=== PATIENT | male | born 1935 | race Hispanic/Latino ===

== ENCOUNTER 2018-02-24 03:30 | Inpatient (IN) | payer MEDICARE, OTHER ==
[2018-02-24 03:46] VITALS: BMI 33.3
--- NOTE | 2018-02-24 03:55 | ED PDOC ---
Arrival/HPI - General Time Seen by Provider: 02/24/18 03:30 Historian: Patient, Other (Friend) - History of Present Illness Narrative History of Present Illness (Text): 02/24/18 03:53 An 82 year old male, whose past medical history includes HI, CHF, A-Fib, presents to the emergency department with a complaint of shortness of breath. Patient notes that he began to experience the difficulty breathing this morning. The patient's friend states that he was coughing today and asked her to call EMS to bring him into the emergency department for further evaluation. The patient also notes that both of his legs are more swollen than the y usually are. The patient denies fevers, chills, headache, dizziness, chest pain , dyspnea on exertion, abdominal pain, nausea, vomiting, diarrhea, back pain, neck pain, urinary/bowel changes, or any other complaint. PMD: Dr. Lowry Time/Duration: Other (Yesterday Morning) Symptom Onset: Sudden Symptom Course: Unchanged Activities at Onset: Rest, Light Context: Home Past Medical History - Provider Review Nursing Documentation Reviewed: Yes Family/Social History - Physician Review Nursing Documentation Reviewed: Yes Family/Social History: No Known Family HX Allergies/Home Meds Allergies/Adverse Reactions: Allergies No Known Allergies Allergy (Verified 02/24/18 03:45) Home Medications: Home Meds Medication Instructions Recorded Confirmed Apixaban [Eliquis] 2.5 mg PO BID 02/24/18 02/24/18 Clopidogrel [Plavix] 75 mg PO DAILY 02/24/18 02/24/18 Finasteride [Proscar] 5 mg PO DAILY 02/24/18 02/24/18 Furosemide [Lasix] 20 mg PO DAILY 02/24/18 02/24/18 Rosuvastatin Calcium [Crestor] 5 mg PO DAILY 02/24/18 02/24/18 Tamsulosin [Flomax] 0.4 mg PO DAILY 02/24/18 02/24/18 Verapamil [Verapamil HCl] 180 mg PO DAILY 02/24/18 02/24/18 Review of Systems - Physician Review All systems were reviewed & negative as marked: Yes - Review of Systems Constitutional: absent: Fevers Respiratory: SOB, Cough Cardiovascular: absent: Chest Pain, FISHER Gastrointestinal: absent: Abdominal Pain, Stool Changes, Diarrhea, Nausea, Vomiting Genitourinary Male: absent: Urinary Output Changes Musculoskeletal: Other (Bilateral leg swelling.). absent: Back Pain, Neck Pain Neurological: absent: Headache, Dizziness Physical Exam - Physical Exam Narrative Physical Exam (Text): 02/24/18 03:56 Gen: VS reviewed, alert, well developed, well nourished, nontoxic, mild distress. ENT: Normal pharynx. Eye: EOMI, PERRL. Neck: No JVD, supple, no adenopathy. CV: Rapid rhythm. Rate irregularly irregular. Mid-sternal surgical scar which is well healed. Pulm: No distress. Faint bilateral expiratory wheeze. Abd: Soft, non-tender, no guarding, no rebound, no rigidity, normal bowel sounds. Ext: Pitting edema bilateral lower extremity. Skin: Good color, no rash, no cyanosis. Psych: Responds appropriately to questions, normal affect. Neuro: Oriented x 3, CN2-12 intact grossly, motor intact, sensation intact. Vital Signs Reviewed: Yes Vital Signs Temp Pulse Resp BP Pulse Ox 02/24/18 06:47 108 H 24 130/68 97 02/24/18 06:07 111 H 26 H 150/78 96 02/24/18 05:53 128/92 H 02/24/18 05:23 103 H 24 119/79 98 02/24/18 04:34 102 H 24 125/85 98 02/24/18 04:12 123 H 142/90 02/24/18 03:33 98.1 F 129 H 20 150/81 92 L Temperature: Afebrile Blood Pressure: Normal Pulse: Tachycardic Respiratory Rate: Normal Appearance: Positive for: Well-Appearing, Non-Toxic, Comfortable Pain Distress: None Mental Status: Positive for: Alert and Oriented X 3 Medical Decision Making ED Course and Treatment: 02/24/18 03:58 Impression: An 82 year old male who presents to the emergency department with complaint of worsening shortness of breath. Plan: -- EKG -- Chest X-ray -- Labs -- Cardizem -- Reassess and disposition Progress Notes: 02/24/18 05:46: Case discussed in detail with medical record librarians teacher. 02/24/18 06:[address] nj, intellectual property counsel, will come to the ED for bedside eval/consult for admission and disposition planning. patient seen for dyspnea and rapid atrial fibrillation. patient clinically in acute decomp chf without acute resp distress. patient also in rapid afib and will require IV cardizem for rate control. - Lab Interpretations Lab Results: 02/24/18 04:00 02/24/18 04:20 Lab Results 02/24/18 04:20: TSH 3rd Generation 1.53 02/24/18 04:20: Sodium 140, Potassium 4.7, Chloride 103, Carbon Dioxide 25, Anion Gap 17, BUN 35 H, Creatinine 1.3, Est GFR ( Amer) > 60, Est GFR ( Non-Af Amer) 53, Random Glucose 116 H, Calcium 9.1, Magnesium 2.2, Total Bilirubin 1.2, AST 44, ALT 96 H, Alkaline Phosphatase 95, Troponin I 0.35 H*, Total Protein 6.8, Albumin 3.9, Globulin 2.9, Albumin/Globulin Ratio 1.4 02/24/18 04:20: PT 18.3 H, INR 1.59, APTT 31.7 02/24/18 04:00: WBC 13.1 H, RBC 4.46, Hgb 13.4 L, Hct 39.4 L, MCV 88.3, MCH 30.0 , MCHC 34.0, RDW 14.3, Plt Count 247, MPV 12.2 H, Gran % 81.9 H, Lymph % (Auto) 8.3 L, [place] % (Auto) 8.7 H, Eos % (Auto) 0.8 L, Baso % (Auto) 0.3, Gran # 10.71 H, Lymph # (Auto) 1.1 L, [place] # (Auto) 1.1 H, Eos # (Auto) 0.1, Baso # (Auto) 0.04 I have reviewed the lab results: Yes - RAD Interpretation Narrative RAD Interpretations (Text): 02/24/18 04:48: Chest X-ray read and interpreted by me shows pulmonary vascular congestion. Cardiomegaly. Mild right pleural effusion. Radiology Orders: 02/24/18 03:50 CHEST PORTABLE [RAD] Stat - EKG Interpretation EKG Interpretation (Text): 02/24/18 07:02 0331: rapid afib at 137 bpm, nonspecific intraventricular conductoin delay, anterior infarct Interpreted by ED Physician: Yes Type: 12 lead EKG - Medication Orders Current Medication Orders: diltiaZEM IVPB 100mg in NS (Cardizem 100mg In Ns) 100 mls @ 10 mls/hr IV .Q10H PRN; Protocol; 10 MG/HR PRN Reason: TITRATE PER MD ORDER Last Admin: 02/24/18 04:12 Dose: 10 mls/hr eMAR Start Stop Document 02/24/18 04:12 SS (Rec: 02/24/18 04:12 SS [id number]) Intravenous Solution Start Date 02/24/18 Start Time 04:12 Discontinued Medications Diltiazem HCl (Cardizem) 20 mg IVP STAT STA Stop: 02/24/18 04:04 Last Admin: 02/24/18 04:12 Dose: 20 mg IVP Administration Document 02/24/18 04:12 SS (Rec: 02/24/18 04:12 SS [id number]) Charges for Administration # of IVP Administrations 1 MAR Pulse and Blood Pressure Document 02/24/18 04:12 SS (Rec: 02/24/18 04:12 SS [id number]) Pulse Pulse Rate (60-90) 123 Blood Pressure Blood Pressure (100/60-150/90) 142/90 Furosemide (Lasix) 40 mg IVP STAT STA Stop: 02/24/18 05:43 Last Admin: 02/24/18 05:53 Dose: 40 mg MAR Blood Pressure Document 02/24/18 05:53 SS (Rec: 02/24/18 05:57 SS [id number]) Blood Pressure Blood Pressure (100/60-150/90) 128/92 IVP Administration Document 02/24/18 05:53 SS (Rec: 02/24/18 05:57 SS [id number]) Charges for Administration # of IVP Administrations 1 - Scribe Statement The provider has reviewed the documentation as recorded by the Scribe Buffy Chávez Provider Scribe Attestation: All medical record entries made by the Scribe were at my direction and personally dictated by me. I have reviewed the chart and agree that the record accurately reflects my personal performance of the history, physical exam, medical decision making, and the department course for this patient. I have also personally directed, reviewed, and agree with the discharge instructions and disposition. Disposition/Present on Arrival - Present on Arrival Any Indicators Present on Arrival: No - Disposition Have Diagnosis and Disposition been Completed?: Yes Diagnosis: CHF (congestive heart failure), Rapid atrial fibrillation Disposition: HOSPITALIZED Disposition Time: 06:45 Patient Plan: Admission Patient Problems: Current Active Problems Problem Status Onset CHF (congestive heart failure) Acute Rapid atrial fibrillation Acute Condition: FAIR Discharge Instructions (ExitCare): Heart Failure (ED)
[2018-02-24 04:10] LABS: BASO # 0.04 K/mm3 (0.0-2.0); BASO % 0.3 % (0.0-3.0); EOS # 0.1 (0.0-0.7); EOS % 0.8 % (1.5-5.0); GRAN # 10.71 (1.4-6.5); GRAN % 81.9 % (50.0-68.0); HEMOGLOBIN 13.4 g/dL (14.0-18.0); LYMPH # 1.1 (1.2-3.4); LYMPH % 8.3 % (22.0-35.0); MEAN CELL VOLUME 88.3 fl (80.0-105.0); MEAN PLATELET VOLUME 12.2 fl (7.0-11.0); MONO # 1.1 (0.1-0.6); MONO % 8.7 % (1.0-6.0); RBC 4.46 10^6/uL (3.5-6.1); RED CELL DISTRIBUTION WIDTH 14.3 % (11.5-14.5); WHITE BLOOD COUNT 13.1 10^3/ul (4.5-11.0)
[2018-02-24] MEDS: diltiaZEM IVPB 100mg in NS 100 ML IV PRN ×2 (04:12→20:00)
[2018-02-24 04:42] LABS: INR 1.59; PROTHROMBIN TIME 18.3 SECONDS (9.4-12.5)
[2018-02-24 04:45] LABS: PARTIAL THROMBOPLASTIN TIME 31.7 Seconds (25.1-36.5)
[2018-02-24 04:56] LABS: ALB/GLOB RATIO 1.4 (1.1-1.8); ALBUMIN 3.9 g/dL (3.0-4.8); ALT/SGPT 96 U/L (7-56); AST/SGOT 44 U/L (17-59); BLOOD UREA NITROGEN 35 mg/dL (7-21); CALCIUM 9.1 mg/dL (8.4-10.5); GFR AFRICAN-AMERICAN > 60; GFR NON-AFRICAN AMERICAN 53
[2018-02-24 05:25] LABS: TROPONIN I 0.35 ng/mL
--- NOTE | 2018-02-24 07:41 | CP.PCM.HP ---
<Saji Norris - Last Filed: 02/24/18 08:24> History of Present Illness - History of Present Illness History of Present Illness: HISTORY & PHYSICAL NOTE FOR HOSPITALIST TEAM Saji Norris PGY1 CC: Cough, SOB, and intermittent chest pain HPI: 82 y/o M with pmhx of CAD, s/p CABG x 4 4years ago, Afib, HTN, HLD, aortic stenosis s/p aortic bioprosthetic valve replacement arrived to ED with worsening complaints of SOB, cough and chest pain that he's been experiencing for the past week. Pt reports he has been unable to sleep due to his cough. Pt was recently admitted at [facility] on 02/16/18 for complaints of chest pain /palpitations and found to have NSTEMI. He underwent cardiac cath with Dr. Amor which showed severe occlusion in LAD, D1 artery, obtuse marginal 1&[address] Amor recommended intervention grafting as outpatient procedure. He was also found to have new onset Afib during that admission. This am, pt presented with complaints of cough, shortness of breath and intermittent chest pain for the past day. Pt expressed concern that he wanted to be seen by Dr. Amor to possibly undergo cardiac grafting. He denies headache, fevers, chills, nausea, vomiting. Discussion was had regarding advanced directives, patient was noted to be DNR/DNI. PMx: CAD, s/p CABG x 4 4years ago, Afib, HTN, HLD, PSurghx: aortic bioprosthetic valve replacement Allergies: NKDA Socialhx: former smoker, no alcohol PMD: [employer] Manager: Dr. Amor Cath results (02/16/18): 99% LAD proximal, mid LAD 100% stenosis, D1 100%, Obtuse marignal 1 100% stenosis, Obtuse marginal 2 99% stenosis, RCA 100% proximally stenosed, saphenous vein graft to diagonal artery has 70-80% distal stenosis Echo (02/16/18): 46% EF. LV moderately dilated, mild-moderate LV hypertrophy. Moderate hypokinesis in inferior wall. Severe diastolic dysfunction. RV moderately dilated. Aortic valve calcified, decreased opening. No pericardial effusion Attempted to contact Dr. Amor multiple times regarding plans for intervention with no response. Dr. Amor: [phone] Present on Admission - Present on Admission Any Indicators Present on Admission: No Review of Systems - Review of Systems All systems: reviewed and no additional remarkable complaints except (as per HPI ) Past Patient History - Past Social History Smoking Status: Former Smoker Drugs: Denies - CARDIAC Hx Cardiac Disorders: Yes Hx Heart Attack: Yes Hx Hypertension: Yes Other/Comment: CABG 01/01/11 - PULMONARY Hx Respiratory Disorders: No - NEUROLOGICAL Hx Neurological Disorder: No - HEENT Hx HEENT Problems: No - RENAL Hx Chronic Kidney Disease: No - ENDOCRINE/METABOLIC Hx Endocrine Disorders: No - HEMATOLOGICAL/ONCOLOGICAL Hx Blood Disorders: No - MUSCULOSKELETAL/RHEUMATOLOGICAL Hx Musculoskeletal Disorders: No - GASTROINTESTINAL Hx Gastrointestinal Disorders: No - GENITOURINARY/GYNECOLOGICAL Hx Genitourinary Disorders: No - PSYCHIATRIC Hx Psychophysiologic Disorder: No Hx Substance Use: No - SURGICAL HISTORY Hx Surgeries: Yes Hx Coronary Artery Bypass Graft: Yes (01/01/11) Meds Allergies/Adverse Reactions: Allergies Allergy/AdvReac Type Severity Reaction Status Date / Time No Known Allergies Allergy Verified 02/24/18 03:45 Physical Exam - Constitutional Appears: Well, No Acute Distress - Head Exam Head Exam: ATRAUMATIC, NORMAL INSPECTION - Eye Exam Eye Exam: Normal appearance - ENT Exam ENT Exam: Mucous Membranes Moist, Normal Exam - Neck Exam Neck exam: Positive for: Normal Inspection - Respiratory Exam Respiratory Exam: Decreased Breath Sounds, Rales, Wheezes, NORMAL BREATHING PATTERN. absent: Respiratory Distress - Cardiovascular Exam Cardiovascular Exam: Tachycardia, Irregular Rhythm - GI/Abdominal Exam GI & Abdominal Exam: Distended, Soft - Extremities Exam Extremities exam: Positive for: pedal edema (2+) - Back Exam Back exam: NORMAL INSPECTION - Neurological Exam Neurological exam: Alert, Oriented x3 - Psychiatric Exam Psychiatric exam: Normal Affect, Normal Mood - Skin Skin Exam: Rash Additional comments: Maculopapular rash over chest region CABG scar noted on chest Results - Vital Signs Recent Vital Signs: Last Vital Signs Temp 98.7 F 02/24/18 07:22 Pulse 97 H 02/24/18 07:22 Resp 20 02/24/18 07:22 BP 120/76 02/24/18 07:22 Pulse Ox 96 02/24/18 07:22 - Labs Result Diagrams: 02/24/18 04:00 02/24/18 04:20 Assessment & Plan - Assessment and Plan (Free Text) Assessment: 82 y/o M with pmhx of CAD, s/p CABG x 4 4years ago, Afib, HTN, HLD, aortic stenosis s/p aortic bioprosthetic valve replacement arrived to ED with worsening complaints of SOB, cough and chest pain that he's been experiencing for the past week. ICU team was consulted for Afib w/RVR. Pt has been improving and has been transferred to tele. Cardiology consulted for further recs regarding cad intervention. Plan: CAD - will transfer to telemetry for monitoring - continue cardizem drip - repeat troponin in 8hrs to r/o acute AR CHF likely secondary to Afib w/ RVR - lasix given in ED, continue 40mg bid IVP - continue eloquis & plavix - attempt to contact Dr. Amor regarding recs - f/u BNP - Strict I&O's & daily weights - BiPAP prn - HHD diet - furthers per Dr. Rosario Case reviewed and discussed with attending, Dr. Rosario <Bryan Rosario P - Last Filed: 02/24/18 19:44> Results - Vital Signs Recent Vital Signs: Last Vital Signs Temp 98 F 02/24/18 17:55 Pulse 96 H 02/24/18 18:20 Resp 18 02/24/18 17:55 BP 137/81 02/24/18 18:20 Pulse Ox 97 02/24/18 14:08 - Labs Result Diagrams: 02/24/18 04:00 02/24/18 04:20 Labs: Laboratory Results - last 24 hr 02/24/18 10:40 Lactate Dehydrogenase 818 H Total Creatine Kinase 92 Troponin I 0.35 H* Attending/Attestation - Attestation I have personally seen and examined this patient.: Yes I have fully participated in the care of the patient.: Yes I have reviewed all pertinent clinical information: Yes Notes (Text): 02/24/18 19:44 See my progress note on the same day.
[2018-02-24] MEDS ORDERED: Digoxin 500 mcg/2ml (0.5 mg/2ml) Inj IVP ONE (07:56)
--- NOTE | 2018-02-24 08:16 | CP.PCM.PN ---
Subjective - Date & Time of Evaluation Date of Evaluation: 02/24/18 Time of Evaluation: 07:45 - Subjective Subjective: MICU RE-EVALUATION Patient is 82yo male with pmhx of CAD, s/p CABG x 4 2010, HTN, HLD, Aortic stenosis s/p aortic bioprosthetic valve replacement arrived to ED with worsening complaints of SOB, cough and chest pain that he's been experiencing for the past week. Patient presented with rapid Afib with RVR started on cardizem drip, currently 20mg/hr, given Lasix IV (550cc UOP thus far), on 2LNC. Patient is currently afebrile, BP stable, HR 100s AAOx3, NAD Reports SOB is significantly improved since admission Recommend: - supp o2 as needed - panculture - lower Cardizem drip to 10mg/hr - Digoxin 0.25mcg x 1 IVP - Lasix 40mg IV BID - ECHO - cardiology eval - monitor on telemetry - Patient is DNR/DNI Objective - Vital Signs/Intake and Output Vital Signs (last 24 hours): Temp Pulse Resp BP Pulse Ox 98.7 F 97 H 20 120/76 96 02/24/18 07:22 02/24/18 07:22 02/24/18 07:22 02/24/18 07:22 02/24/18 07:22 - Medications Medications: Current Medications Finasteride (Proscar) 5 mg PO DAILY JUAN A Furosemide (Lasix) 40 mg IVP Q12 JUAN A diltiaZEM IVPB 100mg in NS (Cardizem 100mg In Ns) 100 mls @ 10 mls/hr IV .Q10H PRN; Protocol; 10 MG/HR PRN Reason: TITRATE PER MD ORDER Last Admin: 02/24/18 04:12 Dose: 10 mls/hr Tamsulosin HCl (Flomax) 0.4 mg PO DAILY JUAN A - Labs Labs: PT 18.3 SECONDS (9.4-12.5) H 02/24/18 04:20 INR 1.59 02/24/18 04:20 APTT 31.7 Seconds (25.1-36.5) 02/24/18 04:20
--- NOTE | 2018-02-24 08:35 | CP.PCM.PN ---
Subjective - Date & Time of Evaluation Date of Evaluation: 02/24/18 Time of Evaluation: 08:30 - Subjective Subjective: Afib rvr CHF with interstitial edema, volume overload Ischemic cardiomyopathy CAD s/p cabg, with 70-80% obstructed vein graft to second diagonal, and 99% blocked marginal 2 needing intervention, last cath 02/16/18 H/o avr bioprosthetic valve Non symptomatic rash noticed in ER in erythematous flat patches, non blanching likely allergic, not type 1 DNR/DNI as per living will d/w commercial real estate attorney. Plan Diuresis trial of betablocer and reducing cardizem drip, patient admitted to tele with fixed rate drip of cardizem. Dr. Amor consulted Trial of ACEI as tolerated continue eliquis for now PRN bipap See orders for detail. Objective - Vital Signs/Intake and Output Vital Signs (last 24 hours): Temp Pulse Resp BP Pulse Ox 98.7 F 97 H 20 120/76 96 02/24/18 07:22 02/24/18 07:22 02/24/18 07:22 02/24/18 07:22 02/24/18 07:22 - Medications Medications: Current Medications Apixaban (Eliquis) 2.5 mg PO BID JUAN A PRN Reason: Protocol Atorvastatin Calcium (Lipitor) 20 mg PO DAILY JUAN A Clopidogrel Bisulfate (Plavix) 75 mg PO DAILY JUAN A Finasteride (Proscar) 5 mg PO DAILY JUAN A Furosemide (Lasix) 40 mg IVP Q12 JUAN A diltiaZEM IVPB 100mg in NS (Cardizem 100mg In Ns) 100 mls @ 10 mls/hr IV .Q10H PRN; Protocol; 10 MG/HR PRN Reason: TITRATE PER MD ORDER Last Admin: 02/24/18 04:12 Dose: 10 mls/hr Tamsulosin HCl (Flomax) 0.4 mg PO DAILY JUAN A - Labs Labs: PT 18.3 SECONDS (9.4-12.5) H 02/24/18 04:20 INR 1.59 02/24/18 04:20 APTT 31.7 Seconds (25.1-36.5) 02/24/18 04:20
[2018-02-24 08:43] VITALS: PULSE 1
--- NOTE | 2018-02-24 09:01 | RAD ---
Date of service: 02/24/2018 HISTORY: CHF COMPARISON: No prior. FINDINGS: LUNGS: No active pulmonary disease. PLEURA: No significant pleural effusion identified, no pneumothorax apparent. CARDIOVASCULAR: Moderate cardiomegaly and moderate vascular congestion OSSEOUS STRUCTURES: Sternal wires VISUALIZED UPPER ABDOMEN: Normal. OTHER FINDINGS: None. IMPRESSION: Moderate cardiomegaly and moderate vascular congestion
--- NOTE | 2018-02-24 09:34 | CARD ---
APPROVED REPORT Date of service: 02/24/2018 EKG Measurement Heart [id number] <Conclusion> Atrial fibrillation with rapid ventricular response Left axis deviation Nonspecific intraventricular block Possible Anterolateral infarct, age undetermined Abnormal ECG
[2018-02-24] MEDS ORDERED: Verapamil 180 mg ER Tab PO SCH (10:00)
[2018-02-24 11:38] LABS: TROPONIN I 0.35 ng/mL
[2018-02-24] MEDS ORDERED: Levalbuterol 1.25 MG/3 ML Inhal Soln UD IH PRN (14:23)
[2018-02-24] MEDS ORDERED: Albuterol-Ipratrop 3 mg / 0.5 (3 ml) UD IH SCH (14:30)
[2018-02-24] MEDS: Levalbuterol 1.25 MG/3 ML Inhal Soln UD IH SCH ×2 (16:06→20:35)
[2018-02-24] MEDS ORDERED: Pneumococcal 23-Valent Vaccine IM ONE (20:06)
[2018-02-25] MEDS: Levalbuterol 1.25 MG/3 ML Inhal Soln UD IH SCH ×4 (02:35→19:50)
[2018-02-25] MEDS: diltiaZEM IVPB 100mg in NS 100 ML IV PRN ×2 (06:14→18:14)
[2018-02-25 07:21] LABS: BASO # 0.07 K/mm3 (0.0-2.0); BASO % 0.6 % (0.0-3.0); EOS % 8.6 % (1.5-5.0); GRAN # 7.73 (1.4-6.5); LYMPH % 9.1 % (22.0-35.0); MEAN CELL VOLUME 89.8 fl (80.0-105.0); MEAN CORPUSCULAR HEMOGLOBIN 29.5 pg (25.0-35.0); MEAN CORPUSCULAR HGB CONC 32.8 g/dl (31.0-37.0); MEAN PLATELET VOLUME 11.7 fl (7.0-11.0); MONO # 1.3 (0.1-0.6); MONO % 11.7 % (1.0-6.0); RBC 4.41 10^6/uL (3.5-6.1); RED CELL DISTRIBUTION WIDTH 14.1 % (11.5-14.5); WHITE BLOOD COUNT 11.1 10^3/ul (4.5-11.0)
[2018-02-25 07:37] LABS: ALB/GLOB RATIO 1.1 (1.1-1.8); ALBUMIN 3.3 g/dL (3.0-4.8); ALT/SGPT 95 U/L (7-56); AST/SGOT 40 U/L (17-59); BLOOD UREA NITROGEN 31 mg/dL (7-21); CALCIUM 8.3 mg/dL (8.4-10.5); GFR AFRICAN-AMERICAN > 60; GFR NON-AFRICAN AMERICAN 58
--- NOTE | 2018-02-25 09:14 | CP.PCM.PN ---
<Janae Camarena - Last Filed: 02/25/18 20:56> Subjective - Date & Time of Evaluation Date of Evaluation: 02/25/18 Time of Evaluation: 09:13 - Subjective Subjective: Janae Camarena, PGY-1, Internal Medicine Progress Note for Dr. Sandy Forrest Patient seen and observed at bedside this AM. Significant overnight events include patient's cardizem drip reduced from 20 mg/hr to 10 mg/hr. Patient reports intermittent wheezing, cough, and white sputum today. Patient denies chest pain, shortness of breath, heart palpitations today. Patient also denies headache, dizziness, left arm pain, jaw pain, nausea, vomiting, constipation, diarrhea, dysuria, and hematuria. Objective - Vital Signs/Intake and Output Vital Signs (last 24 hours): Temp Pulse Resp BP Pulse Ox 98.4 F 94 H 20 110/68 100 02/25/18 06:00 02/25/18 06:00 02/25/18 06:00 02/25/18 06:00 02/25/18 06:00 Intake and Output: 02/25/18 02/25/18 06:59 18:59 Intake Total 580 Output Total 1300 Balance -720 - Medications Medications: Current Medications Apixaban (Eliquis) 2.5 mg PO BID [facility] PRN Reason: Protocol Last Admin: 02/24/18 18:20 Dose: 2.5 mg Aspirin (Aspirin Chewable) 81 mg PO DAILY [facility] Atorvastatin Calcium (Lipitor) 20 mg PO DAILY [facility] Last Admin: 02/24/18 14:02 Dose: 20 mg Carvedilol (Coreg) 3.125 mg PO BID [facility] Last Admin: 02/24/18 18:20 Dose: 3.125 mg Clopidogrel Bisulfate (Plavix) 75 mg PO DAILY [facility] Last Admin: 02/24/18 14:00 Dose: 75 mg Finasteride (Proscar) 5 mg PO DAILY [facility] Last Admin: 02/24/18 14:03 Dose: 5 mg Furosemide (Lasix) 40 mg IVP Q12 [facility] Last Admin: 02/24/18 21:35 Dose: 40 mg diltiaZEM IVPB 100mg in NS (Cardizem 100mg In Ns) 100 mls @ 10 mls/hr IV .Q10H PRN; Protocol; 10 MG/HR PRN Reason: TITRATE PER MD ORDER Last Admin: 02/25/18 06:14 Dose: 10 mg/hr, 10 mls/hr Levalbuterol HCl (Xopenex) 1.25 mg IH Q6H [facility] Last Admin: 02/25/18 08:51 Dose: 1.25 mg Levalbuterol HCl (Xopenex) 1.25 mg IH Q4H PRN PRN Reason: Shortness of Breath Tamsulosin HCl (Flomax) 0.4 mg PO DAILY [facility] Last Admin: 02/24/18 14:02 Dose: 0.4 mg - Labs Labs: 02/25/18 06:30 02/25/18 06:30 PT 18.3 SECONDS (9.4-12.5) H 02/24/18 04:20 INR 1.59 02/24/18 04:20 APTT 31.7 Seconds (25.1-36.5) 02/24/18 04:20 - Constitutional Appears: Well, Non-toxic - Head Exam Head Exam: ATRAUMATIC, NORMOCEPHALIC - Eye Exam Eye Exam: EOMI, PERRL - ENT Exam ENT Exam: Mucous Membranes Moist - Respiratory Exam Respiratory Exam: Wheezes Additional comments: diffuse wheezes anteriorly and posteriorly - Cardiovascular Exam Cardiovascular Exam: Irregular Rhythm Additional comments: irregular rate and rhythm - GI/Abdominal Exam GI & Abdominal Exam: Distended (do not know baseline of abdomen. patient's abdomen looked firm and distended), Firm. absent: Tenderness - Extremities Exam Extremities Exam: Full ROM, Pedal Edema (+2 pitting edema bilaterally). absent : Calf Tenderness - Back Exam Back Exam: NORMAL INSPECTION - Neurological Exam Neurological Exam: Alert, Awake, CN II-XII Intact, Oriented x3 Neuro motor strength exam: Left Upper Extremity: 5, Right Upper Extremity: 5, Left Lower Extremity: 5, Right Lower Extremity: 5 - Psychiatric Exam Psychiatric exam: Normal Affect, Normal Mood - Skin Skin Exam: Erythema (left lower extremity) Assessment and Plan - Assessment and Plan (Free Text) Assessment: 82 year old male with past medical history of CAD, atrial fibrillation, hypertension, HLD, aortic stenosis status post aortic bioprosthetic valve presents with shortness of breath, heart palpitations, and cough. Plan: 1. Atrial fibrillation with Rapid Ventricular Response -EKG (02/24) showed atrial fibrillation with RVR with HR of 137, QRSd: 132, and QTc: 480 -Chest X ray (02/24): moderate cardiomegaly, vascular congestion -At 12:34 today, heart rate was 105. Patient's heart rate has been between 90- 100 since 14:00 on 02/24. -Patient has history of atrial fibrillation -Patient was on diltiazem 20 mg drip overnight which was reduced to 10 mg drip. Diltiazem drip will continue to be tapered. -Per Dr. Amor recommendation, coreg was made 6.25 mg BID PO. -Dr. Michael has been consulted for cardiology at [facility]. Dr. Amor has also been contacted regarding the case for recommendations. Dr. Amor saw patient today in hospital. Continue to follow recommendations of cardiology. 2. Congestive Heart Failure, Aortic stenosis, Hx of CAD -Echocardiogram on 02/16/18 showed 46% ejection fraction, left ventricle was moderately dilated, left ventricular hypertrophy, moderate hypokinesis in inferior wall, severe diastolic dysfunction, dilated right ventricle and restenosed aortic valve. -Cardiac catheterization done by Dr. Amor in [facility]: severe occlusion of LAD (99%), DI (100%) occlusion, obtuse marginal artery 1 (100%) occlusion, obtuse marginal artery 2 (99%) occlusion, and RCA (100%) occlusion -Troponin: 14.[address] [facility] but was 0.35 twice on 02/24 likely secondary to atrial fibrillation and NSTEMI on 02/16 which is less than 2 weeks ago. -BNP: 3880 -LDH: 818 -Diltiazem drip of 10 mg IV -One additional dose of coreg 3.325 mg PO given -Tonight, coreg 6.25 mg PO will be started and continued BID -Lasix 40 mg IVP Q12 -Eliquis 2.5 mg BID -Plavix 75 mg daily -Aspirin was stopped since patient on eliquis. -Systolic blood pressure was in the 100s to 110s so continue to monitor. 3. Hx of BPH -finasteride 5 mg and tamsulosin 0.4 mg as per home regimen. 4. Anemia -13 from 13.4 yesterday. <Sandy Forrest R - Last Filed: 02/27/18 11:34> Objective - Vital Signs/Intake and Output Vital Signs (last 24 hours): Temp Pulse Resp BP Pulse Ox 97.7 F 113 H 18 109/65 99 02/27/18 06:00 02/27/18 09:17 02/27/18 06:00 02/27/18 09:17 02/27/18 06:00 Intake and Output: 02/27/18 02/27/18 06:59 18:59 Intake Total 240 60 Output Total 1100 Balance -860 60 - Medications Medications: Current Medications Apixaban (Eliquis) 2.5 mg PO BID [facility] PRN Reason: Protocol Last Admin: 02/27/18 09:17 Dose: 2.5 mg Atorvastatin Calcium (Lipitor) 20 mg PO DAILY [facility] Last Admin: 02/27/18 09:17 Dose: 20 mg Carvedilol (Coreg) 6.25 mg PO BID [facility] Last Admin: 02/27/18 09:17 Dose: 6.25 mg Clopidogrel Bisulfate (Plavix) 75 mg PO DAILY [facility] Last Admin: 02/27/18 09:17 Dose: 75 mg Diltiazem HCl (Cardizem) 60 mg PO Q8 [facility] Finasteride (Proscar) 5 mg PO DAILY [facility] Last Admin: 02/27/18 09:17 Dose: 5 mg Furosemide (Lasix) 40 mg IVP Q12 [facility] Last Admin: 02/27/18 09:17 Dose: 40 mg diltiaZEM IVPB 100mg in NS (Cardizem 100mg In Ns) 100 mls @ 5 mls/hr IV .Q20H PRN; Protocol; 5 MG/HR PRN Reason: TITRATE PER MD ORDER Last Admin: 02/26/18 17:37 Dose: 5 mg/hr, 5 mls/hr Levalbuterol HCl (Xopenex) 1.25 mg IH Q6H [facility] Last Admin: 02/27/18 07:59 Dose: 1.25 mg Levalbuterol HCl (Xopenex) 1.25 mg IH Q4H PRN PRN Reason: Shortness of Breath Last Admin: 02/26/18 08:44 Dose: 1.25 mg Potassium Chloride (K-Dur 20 Meq Er Tab) 20 meq PO BRK [facility] Last Admin: 02/27/18 09:16 Dose: 20 meq Tamsulosin HCl (Flomax) 0.4 mg PO DAILY [facility] Last Admin: 02/27/18 09:17 Dose: 0.4 mg - Labs Labs: 02/27/18 06:30 02/27/18 06:30 PT 18.3 SECONDS (9.4-12.5) H 02/24/18 04:20 INR 1.59 02/24/18 04:20 APTT 31.7 Seconds (25.1-36.5) 02/24/18 04:20 Attending/Attestation - Attestation I have personally seen and examined this patient.: Yes I have fully participated in the care of the patient.: Yes I have reviewed all pertinent clinical information, including history, physical exam and plan: Yes Notes (Text): Patient seen and examined by me at 11:25AM with resident 02/25/18. Case including HPI, physical exam, and assessment and plan discussed with resident. Agree with above with following additions/corrections. Patient is an 82-year-old male with past medical history significant for coronary artery disease status post CABG, systolic CHF, atrial fibrillation, hypertension, hyperlipidemia, and aortic stenosis status post AVR that presented to the emergency room with cough, shortness of breath, intermittent chest pain. Patient states he is feeling much better. States that shortness of breath and cough have improved. Chest pain has resolved. He states he does still feel like he is wheezing. He denies any headaches or dizziness. No fevers or chills. No nausea, vomiting, or abdominal pain. No dysuria. Patient is on cardizem drip. Physical exam: Gen: Awake and alert sitting up in bed in no acute distress HEENT: Normocephalic, atraumatic. Extraocular muscles intact, pupils equal reactive. Oropharynx is pink and moist, no pharyngeal erythema or exudate appreciated. Neck is supple. Cardiovascular: Irregularly irregular S1, S2. Positive murmur. No rubs, or gallops appreciated. Positive bilateral lower extremity pitting edema. Pulmonary: Normal respiratory effort. Decreased breath sounds. Scatter coarse breath sounds. Positive wheezing throughout. No rales appreciated. Gastrointestinal: Soft, nontender, nondistended, positive globular abdomen, positive bowel sounds all 4 quadrants, no guarding. Musculoskeletal: Moves all extremities, no calf tenderness Central nervous system: AAO x 3. 5/5 muscle strength all extremities. CN 2-12 grossly intact Dermatologic: Skin warm and dry Assessment and plan: Patient is an 82-year-old male with past medical history significant for coronary artery disease status post CABG, systolic CHF, atrial fibrillation, hypertension, hyperlipidemia, and aortic stenosis status post AVR that presented to the emergency room with cough, shortness of breath, intermittent chest pain. 1. Acute on chronic systolic CHF exacerbation. Cardiology consulted, recommendations appreciated. Patient follows with pulvi mixer operator Dr. Amor, case also discussed with Dr. Amor. 2D echo results pending. Continue Lasix 40mg IV BID. Continue Coreg. Monitor weights. Strict I's and O's. 2. Atrial fibrillation with rapid ventricular response. Cardiology following, recommendations appreciated. Continue with Cardizem drip, taper off drip and changed to by mouth when tolerated. Continue Eliquis. Continue Coreg. Coreg dose increased to 6.25 by mouth twice a day. Continue to monitor on telemetry. 3. Shortness of breath. Multifactorial. Likely secondary to CHF exacerbation, atrial fibrillation with RVR, and likely underlying COPD. Continue with nebulizer treatments. Continue with O2 via nasal cannula as needed. We'll get ABG. 4. Coronary artery disease, status post CABG. Elevated troponin. Status post cardiac catheterization at [facility] which showed severe occlusion of LAD (99%), DI (100%) occlusion, obtuse marginal artery 1 (100%) occlusion, obtuse marginal artery 2 (99%) occlusion, and RCA (100%) occlusion. Troponin is downtrending. Cardiology following, recommendations appreciated. Continue Eliquis and Plavix. Patient changed from metoprolol to Coreg. Continue Lipitor. Continue to monitor on telemetry. Patient is chest pain-free. 5. Essential hypertension. Continue with Coreg and Lasix. 6. Hyperlipidemia. Continue Lipitor 7. BPH. Continue home flomax and finasteride 8. DVT prophylaxis. Eliquis 9. Patient is a DNR/DNI Case was discussed in detail with the patient, Dr. Amor, and Dr. Michael regarding current diagnosis and treatment plan.
[2018-02-25] MEDS: Potassium Chloride 20 mEq ER Tab PO SCH (11:16)
--- NOTE | 2018-02-25 15:40 | CARD ---
APPROVED REPORT Date of service: 02/25/2018 EXAM: Two-dimensional and M-mode echocardiogram with Doppler and color Doppler. INDICATION Atrial Fibrillation 2D DIMENSIONS Left Atrium (2D)4.5 (1.6-4.0cm)IVSd1.0 (0.7-1.1cm) LVDd5.3 (3.9-5.9cm)PWd1.0 (0.7-1.1cm) LVDs4.4 (2.5-4.0cm)FS (%) 16.4 % LVEF (%)33.9 (>50%) M-Mode DIMENSIONS Aortic Root3.80 (2.2-3.7cm) Aortic Valve AoV Peak Qrtjcfsg491.0cm/sAoV VTI53.0cmAO Peak GR.27mmHg AO Mean GR.16mmHg Mitral Valve E/A ratio0.0 TDI E/Lateral E'0.0E/Medial E'0.0 Pulmonary Valve PV Peak Qkkqxjgl45.8cm/sPV Peak Grad.3mmHg Tricuspid Valve TR Peak [id number]/sRAP [id number] Peak Gr.32mmHg [id number] LEFT VENTRICLE The left ventricle is normal size. There is normal left ventricular wall thickness. Left ventricle systolic function is moderately impaired. There is global hypokinesis of the left ventricle. RIGHT VENTRICLE The right ventricle is mildly dilated. ATRIA The left atrium is mildly dilated. The right atrium is mildly dilated. The interatrial septum is intact with no evidence for an atrial septal defect. AORTIC VALVE The aortic valve is moderately calcified. No aortic regurgitation is present. There is mild to moderate valvular aortic stenosis. MITRAL VALVE Mitral annular calcification is mild. Mitral regurgitation is moderate. TRICUSPID VALVE The tricuspid valve is normal in structure. There is mild tricuspid regurgitation. PULMONIC VALVE The pulmonary valve is normal in structure. GREAT VESSELS The aortic root is normal in size. The IVC is normal in size and collapses >50% with inspiration. PERICARDIAL EFFUSION There is no pleural effusion. There is no pericardial effusion. <Conclusion> Biatrial enlargement. Dialted RV. Normal LV size. Moderate LV systolic dysfunction with global hypokinesis. Mild to moderate . Moderate MR. Mild TR.
--- NOTE | 2018-02-25 20:22 | CON ---
Copied To: Juarez Michael MD Attending MD: Juarez Michael MD DATE: 02/25/2018 CARDIOLOGY CONSULTATION REASON FOR CONSULTATION: Ischemic cardiomyopathy. HISTORY OF PRESENT ILLNESS: The patient is an 82-year-old male who has a history of coronary artery disease, status post coronary artery bypass surgery many years ago. Patient presented to [facility] with acute non-ST elevation myocardial infarction. Cardiac catheterization was performed by Dr. Amor on 02/21, i.e. 4 days ago, which revealed patent ROSALES to LAD, patent saphenous vein graft to the PDA, and patent saphenous vein graft to the marginal branch with 70% stenosis of distal saphenous vein graft to the diagonal branch. The proximal LAD had 99% stenosis with total occlusion in mid LAD. First obtuse marginal branch had 100% occlusion and the second obtuse marginal branch had 99% stenosis and the right coronary artery was totally occluded, and the plan is to have the patient undergo PCI as an outpatient by Dr. Amor. The patient presented to [facility] because of shortness of breath and was found to be in rapid atrial fibrillation and required anticoagulation. Patient denied any chest pain at this time. SOCIAL HISTORY: Patient never smoked. He lives with a girlfriend. He drives his own car, takes care of himself. MEDICATIONS: Aspirin 81 mg once a day, Cardizem infusion at 10 mg per hour, Coreg 3.125 mg twice a day, Eliquis 2.5 mg twice a day, Flomax 0.4 mg once daily, Lasix 40 mg intravenously twice a day, Lipitor 20 mg once a day, Plavix 75 mg once a day, Xopenex inhaler every 4 hours p.r.n., and Proscar 5 mg once a day. REVIEW OF SYSTEMS: No nausea or vomiting. No fevers or chills. PAST MEDICAL HISTORY: History of coronary artery disease, status post coronary artery bypass surgery and aortic valve replacement. PHYSICAL EXAMINATION: GENERAL: The patient is an elderly male who is mildly tachypneic, but does not appear to be in acute distress. VITAL SIGNS: Blood pressure 121/71, heart rate 92, temperature 98.4, and respirations 20. HEENT: Normocephalic. CHEST: Absent breath sounds over the bases. HEART: S1 and S2, regular. ABDOMEN: Soft. EXTREMITIES: 1+ pitting edema. LABORATORY DATA: Hemoglobin and hematocrit 13 and 39.6, white count 11.1, and platelet count 231,000. SMA-7 today sodium 140, potassium 3.9, chloride 101, CO2 of 30. Glucose 94. BUN 31, creatinine 1.2. Two sets of troponin at 0.35. INR is 1.59, PTT is 33. Chest x-ray revealed cardiomegaly with [id number] CHF. EKG revealed atrial fibrillation at the rate of 137. There was nonspecific intraventricular conduction delay. Recent echo on 02/16, revealed ejection fraction in the range of 40% to 45% with mildly dilated right ventricle with mildly reduced right ventricular systolic function, ejection fraction estimated at 40% to 45%. ASSESSMENT: 1. Status post recent non-ST elevation myocardial infarction. 2. Ischemic cardiomyopathy. 3. Chronic atrial fibrillation. 4. Status post aortic valve replacement, CABG X4 RECOMMENDATIONS: Continue current aspirin 81 mg once a day, IV Cardizem at 10 mg per hour, Coreg 3.125 mg twice a day, Eliquis 2.5 mg twice a day, Lasix 20 mg intravenous twice a day, Lipitor 20 mg once a day, Plavix 75 mg once a day. Start K-Dur at 20 mEq orally once a day. I discussed the case with Dr. Amor, initially schedule was for tomorrow for PCI at [facility]; however, given the fact that the patient is still on Eliquis which has to be held 2 to 3 days prior to surgery, procedure will be postponed. I discussed the case in detail with Dr. Amor that the patient can be discharged _ to be rescheduled as an outpatient for the PCI. Case will further be discussed with primary physician, Dr. Forrest. Juarez Michael MD SHERRY
[2018-02-26] MEDS: Levalbuterol 1.25 MG/3 ML Inhal Soln UD IH SCH ×5 (01:26→20:10)
[2018-02-26] MEDS: diltiaZEM IVPB 100mg in NS 100 ML IV PRN ×3 (01:55→17:37)
[2018-02-26 06:29] LABS: BASO # 0.03 K/mm3 (0.0-2.0); BASO % 0.3 % (0.0-3.0); EOS # 0.8 (0.0-0.7); EOS % 7.8 % (1.5-5.0); GRAN # 7.61 (1.4-6.5); GRAN % 71.3 % (50.0-68.0); HEMOGLOBIN 13.1 g/dL (14.0-18.0); LYMPH # 1.1 (1.2-3.4); LYMPH % 10.7 % (22.0-35.0); MEAN CELL VOLUME 90.4 fl (80.0-105.0); MEAN CORPUSCULAR HEMOGLOBIN 29.2 pg (25.0-35.0); MEAN CORPUSCULAR HGB CONC 32.3 g/dl (31.0-37.0); MEAN PLATELET VOLUME 11.1 fl (7.0-11.0); MONO # 1.1 (0.1-0.6); MONO % 9.9 % (1.0-6.0); RBC 4.49 10^6/uL (3.5-6.1); RED CELL DISTRIBUTION WIDTH 14.2 % (11.5-14.5); WHITE BLOOD COUNT 10.7 10^3/ul (4.5-11.0)
[2018-02-26 07:06] LABS: ALB/GLOB RATIO 1.3 (1.1-1.8); ALBUMIN 3.4 g/dL (3.0-4.8); ALT/SGPT 83 U/L (7-56); AST/SGOT 30 U/L (17-59); BLOOD UREA NITROGEN 33 mg/dL (7-21); CALCIUM 8.6 mg/dL (8.4-10.5); GFR AFRICAN-AMERICAN > 60; GFR NON-AFRICAN AMERICAN 53
[2018-02-26] MEDS: Potassium Chloride 20 mEq ER Tab PO SCH (07:48)
--- NOTE | 2018-02-26 08:56 | CP.PCM.PN ---
<Janae Camarena - Last Filed: 02/26/18 15:38> Subjective - Date & Time of Evaluation Date of Evaluation: 02/26/18 Time of Evaluation: 08:56 - Subjective Subjective: Janae Camarena, PGY-1, Internal Medicine note for Dr. Sandy Forrest Patient seen and examined. No significant overnight events. Patient was titrated down to cardizem drip of 5 mg/hr from 10 mg/hr. Today, patient continues to complain of wheezes. Patient also reports that abdominal distension has reduced. Patient denies headache, dizziness, change in vision or hearing, chest pain, heart palpitations, shortness of breath, nausea, vomiting, constipation, diarrhea, dysuria, hematuria, numbness/tingling. Objective - Vital Signs/Intake and Output Vital Signs (last 24 hours): Temp Pulse Resp BP Pulse Ox 97.8 F 95 H 20 114/67 98 02/26/18 06:00 02/26/18 06:00 02/26/18 06:00 02/26/18 06:00 02/26/18 06:00 Intake and Output: 02/26/18 02/26/18 06:59 18:59 Intake Total 580 Output Total 1575 Balance -995 - Medications Medications: Current Medications Apixaban (Eliquis) 2.5 mg PO BID [facility] PRN Reason: Protocol Last Admin: 02/25/18 17:28 Dose: 2.5 mg Atorvastatin Calcium (Lipitor) 20 mg PO DAILY [facility] Last Admin: 02/25/18 10:10 Dose: 20 mg Carvedilol (Coreg) 6.25 mg PO BID [facility] Last Admin: 02/25/18 17:28 Dose: 6.25 mg Clopidogrel Bisulfate (Plavix) 75 mg PO DAILY [facility] Last Admin: 02/25/18 10:10 Dose: 75 mg Finasteride (Proscar) 5 mg PO DAILY [facility] Last Admin: 02/25/18 10:11 Dose: 5 mg Furosemide (Lasix) 40 mg IVP Q12 [facility] Last Admin: 02/25/18 21:57 Dose: 40 mg diltiaZEM IVPB 100mg in NS (Cardizem 100mg In Ns) 100 mls @ 5 mls/hr IV .Q20H PRN; Protocol; 5 MG/HR PRN Reason: TITRATE PER MD ORDER Last Admin: 02/26/18 06:58 Dose: 5 mg/hr, 5 mls/hr Levalbuterol HCl (Xopenex) 1.25 mg IH Q6H [facility] Last Admin: 02/26/18 08:44 Dose: 1.25 mg Levalbuterol HCl (Xopenex) 1.25 mg IH Q4H PRN PRN Reason: Shortness of Breath Last Admin: 02/26/18 08:44 Dose: 1.25 mg Potassium Chloride (K-Dur 20 Meq Er Tab) 20 meq PO BRK [facility] Last Admin: 02/26/18 07:48 Dose: 20 meq Tamsulosin HCl (Flomax) 0.4 mg PO DAILY [facility] Last Admin: 02/25/18 10:11 Dose: 0.4 mg - Labs Labs: 02/26/18 06:00 02/26/18 06:00 PT 18.3 SECONDS (9.4-12.5) H 02/24/18 04:20 INR 1.59 02/24/18 04:20 APTT 31.7 Seconds (25.1-36.5) 02/24/18 04:20 - Constitutional Appears: Well, Non-toxic, No Acute Distress - Head Exam Head Exam: ATRAUMATIC, NORMOCEPHALIC - Eye Exam Eye Exam: EOMI, Normal appearance - ENT Exam ENT Exam: Mucous Membranes Moist - Respiratory Exam Respiratory Exam: Wheezes (improved from yesterday) - Cardiovascular Exam Cardiovascular Exam: REGULAR RHYTHM, RRR - GI/Abdominal Exam GI & Abdominal Exam: Distended (improved distension from yesterday), Normal Bowel Sounds - Extremities Exam Extremities Exam: Full ROM, Normal Capillary Refill, Pedal Edema Additional comments: +2 pitting edemas in bilateral lower extremities. - Neurological Exam Neurological Exam: Alert, Awake, CN II-XII Intact, Oriented x3 Neuro motor strength exam: Left Upper Extremity: 5, Right Upper Extremity: 5, Left Lower Extremity: 5, Right Lower Extremity: 5 - Psychiatric Exam Psychiatric exam: Normal Affect, Normal Mood - Skin Skin Exam: Erythema (right lower abdomen and pelvis hematoma) Assessment and Plan - Assessment and Plan (Free Text) Assessment: 82 year old male with past medical history of CAD, atrial fibrillation, hypertension, HLD, aortic stenosis status post aortic bioprosthetic valve presents with shortness of breath, heart palpitations, and cough. Plan: 1. Atrial fibrillation with Rapid Ventricular Response -Patient rate controlled now and no longer in RVR. -Patient has history of atrial fibrillation -Telemetry strip (02/26) shows atrial fibrillation at heart rate of 84 bpm -EKG (02/24) showed atrial fibrillation with RVR with HR of 137, QRSd: 132, and QTc: 480 -Chest X ray (02/24): moderate cardiomegaly, vascular congestion -Patient's last heart rate was 80 at 6:00. Highest heart rate today was 95 and lowest was 80. -Patient was on diltiazem 10 mg drip overnight which was reduced to 5 mg drip. Diltiazem drip will be titrated down. -Per Dr. Amor recommendation, coreg was made 6.25 mg BID PO. -Eliquis 2.5 mg BID -Dr. Michael has been consulted for cardiology at [facility]. Dr. Amor has also been contacted regarding the case for recommendations. Dr. Amor saw patient yesterday in hospital. Continue to follow recommendations of cardiology. -Patient for possible discharge tomorrow pending toleration of discontinuation of diltiazem drip. 2. Congestive Heart Failure likely 2/2 to Aortic stenosis, Hx of CAD -Echocardiogram on 02/25/18 showed 33.9% ejection fraction, biatrial enlargement, dilated right ventricle, normal left ventricle size, moderate left ventricular systolic dysfunction with global hypokinesis. Mild to moderate aortic stenosis, moderate mitral regurgitation, and mild tricuspid regurgitation present. -Echocardiogram on 02/16/18 showed 46% ejection fraction, left ventricle was moderately dilated, left ventricular hypertrophy, moderate hypokinesis in inferior wall, severe diastolic dysfunction, dilated right ventricle and restenosed aortic valve. -Cardiac catheterization done by Dr. Amor in [facility]: severe occlusion of LAD (99%), DI (100%) occlusion, obtuse marginal artery 1 (100%) occlusion, obtuse marginal artery 2 (99%) occlusion, and RCA (100%) occlusion -BNP: 3880 -Digoxin blood level: 1.0 on 02/25 -Diltiazem drip of 5 mg IV/hour -Coreg 6.25 mg PO will be started and continued BID -Lasix 40 mg IVP Q12 -Eliquis 2.5 mg BID -Plavix 75 mg daily -Aspirin was stopped since patient on eliquis. -Dr. Amor recommends catherization and possible stent placement for patient done outpatient because patient's eliquis has not been held. 3. Respiratory Distress likely 2/2 to newly diagnosed COPD or CHF -Patient has complained of diffuse wheezes. -ABG (02/26): pO2: 92, pH: 7.42, PCO2: 33.3, O2 Saturation: 98.4 -Dr. Ibarra has been consulted for pulmonary consult. Follow recommendations. -Patient on xopenex 1.25 IH Q6 and xopenex 1.25 IH Q4PRN. -Consider BiPap 4. Hx of BPH -finasteride 5 mg and tamsulosin 0.4 mg as per home regimen. 5. Anemia - 13.1 from 13 yesterday. 6. Leukocytosis likely secondary to stress response from atrial fibrillation -10.7 today from 11.1 on 02/25. Leukocytosis resolved. 7. Elevated Troponin -Troponin: 14.[address] [facility] but was 0.35 twice on 02/24 likely secondary to atrial fibrillation and NSTEMI on 02/16 which is less than 2 weeks ago. <Sandy Forrest R - Last Filed: 02/27/18 11:45> Objective - Vital Signs/Intake and Output Vital Signs (last 24 hours): Temp Pulse Resp BP Pulse Ox 97.7 F 113 H 18 109/65 99 02/27/18 06:00 02/27/18 09:17 02/27/18 06:00 02/27/18 09:17 02/27/18 06:00 Intake and Output: 02/27/18 02/27/18 06:59 18:59 Intake Total 240 60 Output Total 1100 Balance -860 60 - Medications Medications: Current Medications Apixaban (Eliquis) 2.5 mg PO BID [facility] PRN Reason: Protocol Last Admin: 02/27/18 09:17 Dose: 2.5 mg Atorvastatin Calcium (Lipitor) 20 mg PO DAILY [facility] Last Admin: 02/27/18 09:17 Dose: 20 mg Carvedilol (Coreg) 3.125 mg PO BID [facility] Clopidogrel Bisulfate (Plavix) 75 mg PO DAILY [facility] Last Admin: 02/27/18 09:17 Dose: 75 mg Diltiazem HCl (Cardizem) 60 mg PO Q8 [facility] Finasteride (Proscar) 5 mg PO DAILY [facility] Last Admin: 02/27/18 09:17 Dose: 5 mg Furosemide (Lasix) 40 mg IVP Q12 [facility] Last Admin: 02/27/18 09:17 Dose: 40 mg diltiaZEM IVPB 100mg in NS (Cardizem 100mg In Ns) 100 mls @ 5 mls/hr IV .Q20H PRN; Protocol; 5 MG/HR PRN Reason: TITRATE PER MD ORDER Last Admin: 02/26/18 17:37 Dose: 5 mg/hr, 5 mls/hr Levalbuterol HCl (Xopenex) 1.25 mg IH Q6H [facility] Last Admin: 02/27/18 07:59 Dose: 1.25 mg Levalbuterol HCl (Xopenex) 1.25 mg IH Q4H PRN PRN Reason: Shortness of Breath Last Admin: 02/26/18 08:44 Dose: 1.25 mg Potassium Chloride (K-Dur 20 Meq Er Tab) 20 meq PO BRK [facility] Last Admin: 02/27/18 09:16 Dose: 20 meq Tamsulosin HCl (Flomax) 0.4 mg PO DAILY [facility] Last Admin: 02/27/18 09:17 Dose: 0.4 mg - Labs Labs: 02/27/18 06:30 02/27/18 06:30 PT 18.3 SECONDS (9.4-12.5) H 02/24/18 04:20 INR 1.59 02/24/18 04:20 APTT 31.7 Seconds (25.1-36.5) 02/24/18 04:20 Attending/Attestation - Attestation I have personally seen and examined this patient.: Yes I have fully participated in the care of the patient.: Yes I have reviewed all pertinent clinical information, including history, physical exam and plan: Yes Notes (Text): Patient seen and examined by me at 11:00AM with resident 02/26/18. Case including HPI, physical exam, and assessment and plan discussed with resident. Agree with above with following additions/corrections. Patient states he is doing well. Denies shortness of breath but states he is still wheezing a little bit. Cough has improved. No chest pain or palpitations. No headaches or dizziness. No fevers or chills. No nausea, vomiting, or abdominal pain. No dysuria. Physical exam: Gen: Awake and alert sitting up in bed in no acute distress HEENT: Normocephalic, atraumatic. Extraocular muscles intact, pupils equal reactive. Oropharynx is pink and moist, no pharyngeal erythema or exudate appreciated. Neck is supple. Cardiovascular: Irregularly irregular S1, S2. Positive murmur. No rubs, or gallops appreciated. Positive bilateral lower extremity pitting edema. Pulmonary: Normal respiratory effort. Decreased breath sounds. Positive wheezing throughout. No rhonchi or rales appreciated. Gastrointestinal: Soft, nontender, nondistended, positive globular abdomen, positive bowel sounds all 4 quadrants, no guarding. Musculoskeletal: Moves all extremities, no calf tenderness Central nervous system: AAO x 3. 5/5 muscle strength all extremities. CN 2-12 grossly intact Dermatologic: Skin warm and dry Assessment and plan: Patient is an 82-year-old male with past medical history significant for coronary artery disease status post CABG, systolic CHF, atrial fibrillation, hypertension, hyperlipidemia, and aortic stenosis status post AVR that presented to the emergency room with cough, shortness of breath, intermittent chest pain. 1. Acute on chronic systolic CHF exacerbation. Improving. Cardiology following, recommendations appreciated. 2D echo per furniture restorer shows bilateral enlargement, dilated right ventricle, moderate left ventricular systolic dysfunction with global hypokinesis, [id number] aortic stenosis, moderate mitral regurgitation, mild tricuspid regurgitation (please see official read for full details). Continue Lasix 40mg IV BID. Continue Coreg. Continue to monitor daily weights. Continue to monitor strict I's and O's. 2. Atrial fibrillation with rapid ventricular response. Rate is better controlledCardiology following, recommendations appreciated. Continue with Cardizem drip being tapered down. Continue Eliquis. Continue Coreg. Continue to monitor on telemetry. 3. Shortness of breath. Multifactorial. Likely secondary to CHF exacerbation, atrial fibrillation with RVR, and likely underlying COPD. Improving. Continue with nebulizer treatments. Continue with O2 via nasal cannula as needed. Pulmonary consult, follow-up recommendations. 4. Coronary artery disease, status post CABG. Elevated troponin. Status post cardiac catheterization at [facility] which showed severe occlusion of LAD (99%), DI (100%) occlusion, obtuse marginal artery 1 (100%) occlusion, obtuse marginal artery 2 (99%) occlusion, and RCA (100%) occlusion. Troponin is downtrending. Cardiology following, recommendations appreciated. Continue Eliquis and Plavix. Continue Coreg. Continue Lipitor. Patient will need elective PCI with Dr. Amor after Eliquis is held for 2 days. Continue to monitor on telemetry. Patient is chest pain-free. 5. Essential hypertension. Continue with Coreg and Lasix. 6. Hyperlipidemia. Continue Lipitor 7. BPH. Continue home flomax and finasteride 8. DVT prophylaxis. Eliquis 9. Patient is a DNR/DNI Case was discussed in detail with the patient, Dr. Amor, and Dr. Michael regarding current diagnosis and treatment plan.
[2018-02-26 10:13] LABS: ARTERIAL BLOOD GAS HCO3 31.8 mmol/L (21-28); ARTERIAL BLOOD GAS HEMOGLOBIN 12.8 g/dL (11.7-17.4); ARTERIAL BLOOD GAS O2 CAPACITY 17.7 mL/dl (16-24); ARTERIAL BLOOD GAS O2 CONTENT 17.4 ML/dl (15-23); ARTERIAL BLOOD GAS O2 SAT 98.4 % (95-98); ARTERIAL BLOOD GAS PCO2 49 mm/Hg (35-45); ARTERIAL BLOOD GAS PH 7.42 (7.35-7.45); ARTERIAL BLOOD GAS TCO2 33.3 mmol.L (22-28)
--- NOTE | 2018-02-26 16:13 | PN ---
Copied To: Juarez Michael MD Attending MD: Juarez Michael MD DATE: 02/26/2018 SUBJECTIVE: The patient denies any chest pain. He is mildly short of breath. He is off IV Cardizem. PHYSICAL EXAMINATION: VITAL SIGNS: Blood pressure 114/67, heart rate 80, temperature 97.8, respirations 20. HEENT: Normocephalic. CHEST: Bilateral rhonchi and scattered wheezing. HEART: S1 and S2 regular. EXTREMITIES: Have 1+ pitting edema. LABORATORY DATA: Hemoglobin and hematocrit 13.1 and 40.6. White count and platelet count are within normal limits. Digoxin level is 1. The SMA-7 is within normal limits except for carbon dioxide of 35 and BUN of 33. ASSESSMENT: 1. Ischemic cardiomyopathy. 2. Status post recent non-ST elevation myocardial infarction. 3. Chronic atrial fibrillation. 4. Status post bioprosthetic aortic valve replacement. RECOMMENDATIONS: Case was discussed with Dr. Amor, the air pollution compliance inspector. Coreg was increased to 6.25 mg twice a day. Aspirin was discontinued as per Cardiology request. The patient will be maintained on Eliquis 2.5 mg twice a day, K-Dur 20 mEq once a day, Lasix 40 mg intravenously twice a day, Plavix 75 mg once daily, Lipitor 20 mg once a day. Once the patient becomes stable, the patient will be discharged on his current medications, to be readmitted for elective PCI by Dr. Amor and Eliquis will be discontinued 2 to 3 days prior to the procedure. Juarez Michael MD
[2018-02-27] MEDS: Levalbuterol 1.25 MG/3 ML Inhal Soln UD IH SCH ×4 (01:56→22:03)
[2018-02-27 07:27] LABS: ALB/GLOB RATIO 1.2 (1.1-1.8); ALBUMIN 3.8 g/dL (3.0-4.8); ALT/SGPT 74 U/L (7-56); AST/SGOT 33 U/L (17-59); BLOOD UREA NITROGEN 35 mg/dL (7-21); CALCIUM 8.7 mg/dL (8.4-10.5); GFR AFRICAN-AMERICAN > 60; GFR NON-AFRICAN AMERICAN 58
[2018-02-27 08:17] LABS: BASO # 0.04 K/mm3 (0.0-2.0); BASO % 0.3 % (0.0-3.0); EOS % 7.4 % (1.5-5.0); GRAN # 9.5 (1.4-6.5); HEMOGLOBIN 13.9 g/dL (14.0-18.0); LYMPH % 15.3 % (22.0-35.0); MEAN CELL VOLUME 91.7 fl (80.0-105.0); MEAN CORPUSCULAR HEMOGLOBIN 29.6 pg (25.0-35.0); MEAN CORPUSCULAR HGB CONC 32.3 g/dl (31.0-37.0); MEAN PLATELET VOLUME 11.3 fl (7.0-11.0); MONO # 0.4 (0.1-0.6); RBC 4.69 10^6/uL (3.5-6.1); RED CELL DISTRIBUTION WIDTH 14.4 % (11.5-14.5); WHITE BLOOD COUNT 12.8 10^3/ul (4.5-11.0)
[2018-02-27] MEDS: Potassium Chloride 20 mEq ER Tab PO SCH (09:16)
--- NOTE | 2018-02-27 10:22 | CP.PCM.PN ---
Addendum entered and electronically signed by Stella Garrido DO 02/27/18 15:43: Patient still tachycardic 110-120bpm on tele monitor. STAT 30mg po Cardizem given now and standing dose changed to Cardizem 90mg po q8h with holding parameters [hold for SBP < 100 or HR <60] as discussed with Cardiology Dr. Ruelas Attending Dr. Lon Garrido PGY3 Original Note: <Evelin Pearson - Last Filed: 02/27/18 13:30> Subjective - Date & Time of Evaluation Date of Evaluation: 02/27/18 Time of Evaluation: 10:18 - Subjective Subjective: Evelin Pearson PGY1 Progress note for Dr. Sandy Forrest Mr. Prater was examined at bedside this morning. He denies any shortness of breath, chest pain, dizziness, abdominal pain, nausea, or vomiting. He reports he was able to walk around this morning without shortness of breath or fatigue. Objective - Vital Signs/Intake and Output Vital Signs (last 24 hours): Temp Pulse Resp BP Pulse Ox 97.7 F 113 H 18 109/65 99 02/27/18 06:00 02/27/18 09:17 02/27/18 06:00 02/27/18 09:17 02/27/18 06:00 Intake and Output: 02/27/18 02/27/18 06:59 18:59 Intake Total 240 60 Output Total 1100 Balance -860 60 - Medications Medications: Current Medications Apixaban (Eliquis) 2.5 mg PO BID [facility] PRN Reason: Protocol Last Admin: 02/27/18 09:17 Dose: 2.5 mg Atorvastatin Calcium (Lipitor) 20 mg PO DAILY [facility] Last Admin: 02/27/18 09:17 Dose: 20 mg Carvedilol (Coreg) 6.25 mg PO BID [facility] Last Admin: 02/27/18 09:17 Dose: 6.25 mg Clopidogrel Bisulfate (Plavix) 75 mg PO DAILY [facility] Last Admin: 02/27/18 09:17 Dose: 75 mg Diltiazem HCl (Cardizem) 60 mg PO Q8 [facility] Finasteride (Proscar) 5 mg PO DAILY [facility] Last Admin: 02/27/18 09:17 Dose: 5 mg Furosemide (Lasix) 40 mg IVP Q12 [facility] Last Admin: 02/27/18 09:17 Dose: 40 mg diltiaZEM IVPB 100mg in NS (Cardizem 100mg In Ns) 100 mls @ 5 mls/hr IV .Q20H PRN; Protocol; 5 MG/HR PRN Reason: TITRATE PER MD ORDER Last Admin: 02/26/18 17:37 Dose: 5 mg/hr, 5 mls/hr Levalbuterol HCl (Xopenex) 1.25 mg IH Q6H [facility] Last Admin: 02/27/18 07:59 Dose: 1.25 mg Levalbuterol HCl (Xopenex) 1.25 mg IH Q4H PRN PRN Reason: Shortness of Breath Last Admin: 02/26/18 08:44 Dose: 1.25 mg Potassium Chloride (K-Dur 20 Meq Er Tab) 20 meq PO BRK [facility] Last Admin: 02/27/18 09:16 Dose: 20 meq Tamsulosin HCl (Flomax) 0.4 mg PO DAILY [facility] Last Admin: 02/27/18 09:17 Dose: 0.4 mg - Labs Labs: 02/27/18 06:30 02/27/18 06:30 PT 18.3 SECONDS (9.4-12.5) H 02/24/18 04:20 INR 1.59 02/24/18 04:20 APTT 31.7 Seconds (25.1-36.5) 02/24/18 04:20 - Constitutional Appears: Well, No Acute Distress - Head Exam Head Exam: ATRAUMATIC, NORMOCEPHALIC - Eye Exam Eye Exam: EOMI, Normal appearance - ENT Exam ENT Exam: Mucous Membranes Moist - Respiratory Exam Respiratory Exam: Clear to Ausculation Bilateral. absent: Rales, Rhonchi, Wheezes - Cardiovascular Exam Cardiovascular Exam: REGULAR RHYTHM, +S1, +S2 - GI/Abdominal Exam GI & Abdominal Exam: Distended, Soft, Normal Bowel Sounds. absent: Firm, Guarding, Rigid, Tenderness - Extremities Exam Extremities Exam: Pedal Edema - Back Exam Back Exam: NORMAL INSPECTION - Neurological Exam Neurological Exam: Alert, Awake, Oriented x3 - Psychiatric Exam Psychiatric exam: Normal Affect, Normal Mood Assessment and Plan - Assessment and Plan (Free Text) Assessment: 82 year old male with past medical history of CAD, atrial fibrillation, hypertension, HLD, aortic stenosis status post aortic bioprosthetic valve presents with shortness of breath, heart palpitations, and cough. Plan: Atrial fibrillation with Rapid Ventricular Response -Patient rate controlled now and no longer in RVR. -Patient has history of atrial fibrillation -Telemetry strip (02/27 over night) showed rate 93-125 rhythm A. fib -EKG (02/24) showed atrial fibrillation with RVR with HR of 137, QRSd: 132, and QTc: 480 -Chest X ray (02/24): moderate cardiomegaly, vascular congestion -d/c diltiazem drip as per Dr. Ruelas and monitor -start diltiazem PO 60mg q8 -continue coreg 6.25 mg BID PO as per Dr. Amor. -Eliquis 2.5 mg BID -Dr. Michael has been consulted for cardiology at [facility]. Dr. Amor has also been contacted regarding the case for recommendations. Continue to follow recommendations of cardiology. -HR 113 this morning -Patient for possible discharge tomorrow pending toleration of discontinuation of diltiazem drip and improvement of HR. Congestive Heart Failure likely 2/2 to Aortic stenosis, Hx of CAD -Echocardiogram on 02/25/18 showed 33.9% ejection fraction, biatrial enlargement, dilated right ventricle, normal left ventricle size, moderate left ventricular systolic dysfunction with global hypokinesis. Mild to moderate aortic stenosis, moderate mitral regurgitation, and mild tricuspid regurgitation present. -Echocardiogram on 02/16/18 showed 46% ejection fraction, left ventricle was moderately dilated, left ventricular hypertrophy, moderate hypokinesis in inferior wall, severe diastolic dysfunction, dilated right ventricle and restenosed aortic valve. -Cardiac catheterization done by Dr. Amor in [facility]: severe occlusion of LAD (99%), DI (100%) occlusion, obtuse marginal artery 1 (100%) occlusion, obtuse marginal artery 2 (99%) occlusion, and RCA (100%) occlusion -BNP: 3880 -Digoxin blood level: 1.0 on 02/25 -d/c Diltiazem drip and monitor today -will start diltiazem PO 60mg q8 -continue Coreg 6.25 mg PO BID -Lasix 40 mg IVP Q12 -Eliquis 2.5 mg BID -Plavix 75 mg daily -Aspirin was stopped since patient on eliquis. -Dr. Amor recommends catherization and possible stent placement for patient done outpatient because patient's eliquis has not been held. Respiratory Distress likely 2/2 to newly diagnosed COPD or CHF -Patient denies shortness of breath or wheezing today. -ABG (02/26): pO2: 92, pH: 7.42, PCO2: 33.3, O2 Saturation: 98.4 -Dr. Ibarra has been consulted for pulmonary consult. Follow recommendations. -Patient on xopenex 1.25 IH Q6 and xopenex 1.25 IH Q4PRN. -Consider BiPap Hx of BPH -continue finasteride 5 mg and tamsulosin 0.4 mg as per home regimen. Anemia -Hb 13.9 today. Leukocytosis likely secondary to stress response from atrial fibrillation -WBC 12.8 today from 10.7 on 02/26 -likely etiology: secondary to A. fib stress response 7. Elevated Troponin -Troponin: 14.6 at [facility] but was 0.35 twice on 02/24 likely secondary to atrial fibrillation and NSTEMI on 02/16 which is less than 2 weeks ago. <Sandy Forrest R - Last Filed: 02/28/18 14:36> Objective - Vital Signs/Intake and Output Vital Signs (last 24 hours): Temp Pulse Resp BP Pulse Ox 98 F 131 H 18 119/69 98 02/28/18 12:00 02/28/18 13:12 02/28/18 12:00 02/28/18 13:12 02/28/18 06:00 Intake and Output: 02/28/18 02/28/18 06:59 18:59 Intake Total 300 Output Total 600 Balance -300 - Medications Medications: Current Medications Apixaban (Eliquis) 2.5 mg PO BID [facility] PRN Reason: Protocol Last Admin: 02/28/18 09:01 Dose: 2.5 mg Atorvastatin Calcium (Lipitor) 20 mg PO DAILY [facility] Last Admin: 02/28/18 09:01 Dose: 20 mg Carvedilol (Coreg) 6.25 mg PO BID [facility] Clopidogrel Bisulfate (Plavix) 75 mg PO DAILY [facility] Last Admin: 02/28/18 09:01 Dose: 75 mg Diltiazem HCl (Cardizem) 90 mg PO Q8H [facility] Last Admin: 02/28/18 13:12 Dose: 90 mg Finasteride (Proscar) 5 mg PO DAILY [facility] Last Admin: 02/28/18 09:01 Dose: 5 mg Furosemide (Lasix) 40 mg IVP DAILY [facility] Levalbuterol HCl (Xopenex) 1.25 mg IH Q6H [facility] Last Admin: 02/28/18 13:17 Dose: 1.25 mg Levalbuterol HCl (Xopenex) 1.25 mg IH Q4H PRN PRN Reason: Shortness of Breath Last Admin: 02/26/18 08:44 Dose: 1.25 mg Potassium Chloride (K-Dur 20 Meq Er Tab) 20 meq PO BRK [facility] Last Admin: 02/28/18 08:47 Dose: 20 meq Tamsulosin HCl (Flomax) 0.4 mg PO DAILY [facility] Last Admin: 02/28/18 09:01 Dose: 0.4 mg - Labs Labs: 02/28/18 06:45 02/28/18 06:45 PT 18.3 SECONDS (9.4-12.5) H 02/24/18 04:20 INR 1.59 02/24/18 04:20 APTT 31.7 Seconds (25.1-36.5) 02/24/18 04:20 Attending/Attestation - Attestation I have personally seen and examined this patient.: Yes I have fully participated in the care of the patient.: Yes I have reviewed all pertinent clinical information, including history, physical exam and plan: Yes Notes (Text): Patient seen and examined by me at 10:30AM with resident 02/27/18. Case including HPI, physical exam, and assessment and plan discussed with resident. Agree with above with following additions/corrections. Patient states he is doing ok. Feels sleepy. States he was able to walk well with physical therapy yesterday. He feels like wheezing and shortness of breath have resolved. Denies coughing today. No chest pain or palpitations. No headaches or dizziness. No fevers or chills. No nausea, vomiting, or abdominal pain. No dysuria. Physical exam: Gen: Awake and alert sitting up in bed in no acute distress HEENT: Normocephalic, atraumatic. Extraocular muscles intact, pupils equal reactive. Oropharynx is pink and moist, no pharyngeal erythema or exudate appreciated. Neck is supple. Cardiovascular: Irregularly irregular rhythm. Tachycardiac S1, S2. No murmurs, rubs, or gallops appreciated. Positive bilateral lower extremity pitting edema. Pulmonary: Normal respiratory effort. Decreased breath sounds. Positive wheezing throughout. No rhonchi or rales appreciated. Gastrointestinal: Soft, nontender, nondistended, positive globular abdomen, positive bowel sounds all 4 quadrants, no guarding. Musculoskeletal: Moves all extremities, no calf tenderness Central nervous system: AAO x 3. 5/5 muscle strength all extremities. Dermatologic: Skin warm and dry Assessment and plan: Patient is an 82-year-old male with past medical history significant for coronary artery disease status post CABG, systolic CHF, atrial fibrillation, hypertension, hyperlipidemia, and aortic stenosis status post AVR that presented to the emergency room with cough, shortness of breath, intermittent chest pain. 1. Atrial fibrillation with rapid ventricular response. Cardiology following, recommendations appreciated. Cardizem drip stopped. Placed on Cardizem 90mg PO q8hrs. Continue Eliquis. Continue Coreg. Continue to monitor on telemetry. 2. Acute on chronic systolic CHF exacerbation. Resolving. Cardiology following, recommendations appreciated. 2D echo per access director shows bilateral enlargement, dilated right ventricle, moderate left ventricular systolic dysfunction with global hypokinesis, [id number] aortic stenosis, moderate mitral regurgitation, mild tricuspid regurgitation (please see official read for full details). Continue Lasix and Coreg. Continue to monitor daily weights. Continue to monitor strict I's and O's. 3. Shortness of breath. Multifactorial. Likely secondary to CHF exacerbation, atrial fibrillation with RVR, and likely underlying COPD. Resolved per patient. Continue with nebulizer treatments. Continue with O2 via nasal cannula as needed. Pulmonary following, recommendations appreciated, will need outpatient PFTs. 4. Coronary artery disease, status post CABG. Elevated troponin. Status post cardiac catheterization at [facility] which showed severe occlusion of LAD (99%), DI (100%) occlusion, obtuse marginal artery 1 (100%) occlusion, obtuse marginal artery 2 (99%) occlusion, and RCA (100%) occlusion. Troponin downtrended. Cardiology following, recommendations appreciated. Continue Eliquis and Plavix. Continue Coreg. Continue Lipitor. Patient will need elective PCI with Dr. Amor after Eliquis is held for 2 days. Continue to monitor on telemetry. Patient is chest pain-free. 5. Essential hypertension. Continue with Coreg, Cardizem, and Lasix. 6. Hyperlipidemia. Continue Lipitor 7. BPH. Continue flomax and finasteride 8. DVT prophylaxis. Eliquis 9. Patient is a DNR/DNI Case was discussed in detail with the patient regarding current diagnosis and treatment plan.
--- NOTE | 2018-02-27 11:34 | CP.PCM.CON ---
History of Present Illness - History of Present Illness History of Present Illness: PULMONARY CONSULT REASON FOR CONSULT: Abnormal ABG HPI Patient is 82yo male with pmhx of CAD, s/p CABG x 4 2010, HTN, HLD, Aortic stenosis s/p aortic bioprosthetic valve replacement presented to the ER with acute decompensated CHF exacerbation, Rapid Afib with RVR, now off cardizem drip. Patient is former smoker 4pks pd for 40 years, has hx COPD. Pulmonary consulted for further managment. ABG noted with chronic resp acidosis. patient is awake, alert, sitting in chair on room air. No major complaints. PMx: CAD, s/p CABG x 4 4years ago, Afib, HTN, HLD, Surg hx: aortic bioprosthetic valve replacement Allergies: NKDA Social hx: former smoker, no alcohol Review of Systems - Review of Systems Review of Systems: as per HPI Past Patient History - Past Medical History & Family History Past Medical History?: Yes - Past Social History Smoking Status: Former Smoker - CARDIAC Hx Cardiac Disorders: Yes (A fib, aortic stenosis s/p aortic bioprosthetric valve replacement.) Hx Hypercholesterolemia: Yes Hx Hypertension: Yes - PULMONARY Hx Respiratory Disorders: No - NEUROLOGICAL Hx Neurological Disorder: No - HEENT Hx HEENT Problems: No - RENAL Hx Chronic Kidney Disease: No - ENDOCRINE/METABOLIC Hx Endocrine Disorders: No - HEMATOLOGICAL/ONCOLOGICAL Hx Blood Disorders: No - INTEGUMENTARY Hx Dermatological Problems: Yes Other/Comment: multiple moles removed by dr castellano as pr pt, pt does not know if any were malignant, pt stated "I don't know she gave me carmina to put on,", mid chest healed scar, red raised rash and redness all over chest abd ad lower abd upper thighs redness goes around to back, slight redness to buttocks, age spots to forehead, large eccymotic area to right groin and r lower abd dressing dry and and intact had angiogram done 02/16/18 intact, multiple age spots to b/l forehead and templees - MUSCULOSKELETAL/RHEUMATOLOGICAL Hx Musculoskeletal Disorders: Yes Hx Falls: No Hx Unsteady Gait: Yes - GASTROINTESTINAL Hx Gastrointestinal Disorders: Yes (obese) - GENITOURINARY/GYNECOLOGICAL Hx Genitourinary Disorders: Yes Hx Prostate Problems: ("I don't know I never had an exam" stated pt) Other/Comment: c/o urinary retention and is on flomax - PSYCHIATRIC Hx Psychophysiologic Disorder: No Hx Substance Use: No - SURGICAL HISTORY Hx Surgeries: Yes Hx Open Heart Surgery: Yes - ANESTHESIA Hx Anesthesia: Yes Hx Anesthesia Reactions: No Hx Malignant Hyperthermia: No Meds Allergies/Adverse Reactions: Allergies Allergy/AdvReac Type Severity Reaction Status Date / Time No Known Allergies Allergy Verified 02/24/18 03:45 - Medications Medications: Current Medications Apixaban (Eliquis) 2.5 mg PO BID [facility] PRN Reason: Protocol Last Admin: 02/27/18 09:17 Dose: 2.5 mg Atorvastatin Calcium (Lipitor) 20 mg PO DAILY [facility] Last Admin: 02/27/18 09:17 Dose: 20 mg Carvedilol (Coreg) 3.125 mg PO BID [facility] Clopidogrel Bisulfate (Plavix) 75 mg PO DAILY [facility] Last Admin: 02/27/18 09:17 Dose: 75 mg Diltiazem HCl (Cardizem) 60 mg PO Q8 [facility] Finasteride (Proscar) 5 mg PO DAILY [facility] Last Admin: 02/27/18 09:17 Dose: 5 mg Furosemide (Lasix) 40 mg IVP Q12 [facility] Last Admin: 02/27/18 09:17 Dose: 40 mg diltiaZEM IVPB 100mg in NS (Cardizem 100mg In Ns) 100 mls @ 5 mls/hr IV .Q20H PRN; Protocol; 5 MG/HR PRN Reason: TITRATE PER MD ORDER Last Admin: 02/26/18 17:37 Dose: 5 mg/hr, 5 mls/hr Levalbuterol HCl (Xopenex) 1.25 mg IH Q6H [facility] Last Admin: 02/27/18 07:59 Dose: 1.25 mg Levalbuterol HCl (Xopenex) 1.25 mg IH Q4H PRN PRN Reason: Shortness of Breath Last Admin: 02/26/18 08:44 Dose: 1.25 mg Potassium Chloride (K-Dur 20 Meq Er Tab) 20 meq PO BRK [facility] Last Admin: 02/27/18 09:16 Dose: 20 meq Tamsulosin HCl (Flomax) 0.4 mg PO DAILY [facility] Last Admin: 02/27/18 09:17 Dose: 0.4 mg Physical Exam - Constitutional Appears: Non-toxic, No Acute Distress - Head Exam Head Exam: NORMAL INSPECTION - Eye Exam Eye Exam: Normal appearance - ENT Exam ENT Exam: Mucous Membranes Moist - Neck Exam Neck exam: Positive for: Full Rom - Respiratory Exam Respiratory Exam: Clear to Auscultation Bilateral, NORMAL BREATHING PATTERN - Cardiovascular Exam Cardiovascular Exam: REGULAR RHYTHM, +S1, +S2 - GI/Abdominal Exam GI & Abdominal Exam: Normal Bowel Sounds, Soft - Extremities Exam Extremities exam: Positive for: pedal edema - Neurological Exam Neurological exam: Alert, Oriented x3 - Psychiatric Exam Psychiatric exam: Normal Affect Results - Vital Signs Recent Vital Signs: Last Vital Signs Temp 97.7 F 02/27/18 06:00 Pulse 113 H 02/27/18 09:17 Resp 18 02/27/18 06:00 BP 109/65 02/27/18 09:17 Pulse Ox 99 02/27/18 06:00 - Labs Result Diagrams: 02/27/18 06:30 02/27/18 06:30 Labs: Laboratory Results - last 24 hr 02/26/18 02/27/18 02/27/18 10:10 06:30 06:30 WBC 12.8 H RBC 4.69 Hgb 13.9 L Hct 43.0 MCV 91.7 MCH 29.6 MCHC 32.3 RDW 14.4 Plt Count 264 MPV 11.3 H Gran % 74.0 H Lymph % (Auto) 15.3 L [place] % (Auto) 3.0 Eos % (Auto) 7.4 H Baso % (Auto) 0.3 Gran # 9.50 H Lymph # (Auto) 2.0 [place] # (Auto) 0.4 Eos # (Auto) 1.0 H Baso # (Auto) 0.04 pCO2 49 H pO2 92.0 HCO3 31.8 H ABG pH 7.42 ABG Total CO2 33.3 H ABG O2 Saturation 98.4 H ABG O2 Content 17.4 ABG Base Excess 6.2 H ABG Hemoglobin 12.8 ABG Carboxyhemoglobin 1.4 POC ABG HHb (Measured) 1.6 ABG Methemoglobin 0.8 ABG O2 Capacity 17.7 Hgb O2 Saturation 96.1 FiO2 28.0 Sodium 145 Potassium 4.3 Chloride 97 L Carbon Dioxide 38 H Anion Gap 14 BUN 35 H Creatinine 1.2 Est GFR ( Amer) > 60 Est GFR (Non-Af Amer) 58 Random Glucose 105 Calcium 8.7 Total Bilirubin 0.8 AST 33 ALT 74 H Alkaline Phosphatase 87 Total Protein 7.0 Albumin 3.8 Globulin 3.2 Albumin/Globulin Ratio 1.2 Assessment & Plan - Assessment and Plan (Free Text) Assessment: 82yo male with PMHx of CHF, CAD, CABG, COPD, admitted for CHF exacerbation, Afib , with chronic resp acidosis, compensated. - patient awake, alert, NAD, sitting in chair conversing - supp o2 as needed, goal sat 90% - Duonebs PRN - Symbicort 160/4.5 BID - Outpatient full PFTs - rate control
--- NOTE | 2018-02-27 13:14 | PN ---
Copied To: Juarez Michael MD Attending MD: Juarez Michael MD DATE: 02/27/2018 FOLLOWUP SUBJECTIVE: The patient feels better. He is still on Cardizem 5 mg per hour. PHYSICAL EXAMINATION: VITAL SIGNS: Blood pressure 108/69, heart rate 72, temperature 97.7, respirations 18. HEENT: Normocephalic. CHEST: Bibasilar rhonchi. HEART: S1 and S2 regular. ABDOMEN: Soft. EXTREMITIES: 1+ pitting edema. LABORATORY DATA: Today's hemoglobin and hematocrit are 15.9 and 43, white count 12.8, platelet count 164,000. SMA-7: Sodium 145, potassium 4.3, chloride 97, CO2 of 38, glucose 105, BUN 35, creatinine 1.2. ASSESSMENT: 1. Status post recent [id number] myocardial infarction. 2. Status post bioprosthetic aortic valve replacement. 3. Chronic atrial fibrillation. 4. Congestive heart failure. RECOMMENDATIONS: Case was discussed with the medical team. The patient could be started on oral Cardizem 60 mg every 8 hours, followed by discontinuation of intravenous Cardizem. Reduce Coreg to 3.125 mg twice a day. Continue Eliquis 2.5 mg twice a day, K-dur 20 mEq once a day, Lasix at 40 mg intravenously twice a day, Plavix 75 mg once a day and Xopenex inhaler. Juarez Michael MD
[2018-02-28] MEDS: Levalbuterol 1.25 MG/3 ML Inhal Soln UD IH SCH ×4 (03:10→20:50)
[2018-02-28 07:34] LABS: BASO # 0.06 K/mm3 (0.0-2.0); BASO % 0.5 % (0.0-3.0); EOS # 0.9 (0.0-0.7); EOS % 7.1 % (1.5-5.0); GRAN # 9.34 (1.4-6.5); GRAN % 73.6 % (50.0-68.0); HEMOGLOBIN 12.7 g/dL (14.0-18.0); LYMPH # 1.4 (1.2-3.4); LYMPH % 11.2 % (22.0-35.0); MEAN CELL VOLUME 91.5 fl (80.0-105.0); MEAN CORPUSCULAR HEMOGLOBIN 29.1 pg (25.0-35.0); MEAN CORPUSCULAR HGB CONC 31.8 g/dl (31.0-37.0); MEAN PLATELET VOLUME 11.1 fl (7.0-11.0); MONO % 7.6 % (1.0-6.0); RBC 4.36 10^6/uL (3.5-6.1); RED CELL DISTRIBUTION WIDTH 14.2 % (11.5-14.5); WHITE BLOOD COUNT 12.7 10^3/ul (4.5-11.0)
[2018-02-28 07:46] LABS: ALB/GLOB RATIO 1.2 (1.1-1.8); ALBUMIN 3.5 g/dL (3.0-4.8); ALT/SGPT 64 U/L (7-56); AST/SGOT 30 U/L (17-59); BLOOD UREA NITROGEN 29 mg/dL (7-21); CALCIUM 8.7 mg/dL (8.4-10.5); GFR AFRICAN-AMERICAN > 60; GFR NON-AFRICAN AMERICAN > 60
[2018-02-28] MEDS: Potassium Chloride 20 mEq ER Tab PO SCH (08:47)
--- NOTE | 2018-02-28 12:46 | CP.PCM.PN ---
<Evelin Pearson - Last Filed: 02/28/18 14:58> Subjective - Date & Time of Evaluation Date of Evaluation: 02/28/18 Time of Evaluation: 12:50 - Subjective Subjective: Evelin Pearson PGY1 Progress Note for Dr. Sandy Forrest Mr. Prater was examined this morning. He denied any shortness of breath, dizziness, chest pain, abdominal pain, dysuria. His resident care spec was with him today, and explained that he does not currently have continuous assistance at home. Objective - Vital Signs/Intake and Output Vital Signs (last 24 hours): Temp Pulse Resp BP Pulse Ox 97.8 F 73 20 118/80 98 02/28/18 06:00 02/28/18 09:02 02/28/18 06:00 02/28/18 09:02 02/28/18 06:00 - Medications Medications: Current Medications Apixaban (Eliquis) 2.5 mg PO BID [facility] PRN Reason: Protocol Last Admin: 02/28/18 09:01 Dose: 2.5 mg Atorvastatin Calcium (Lipitor) 20 mg PO DAILY [facility] Last Admin: 02/28/18 09:01 Dose: 20 mg Carvedilol (Coreg) 3.125 mg PO BID [facility] Last Admin: 02/28/18 09:02 Dose: 3.125 mg Clopidogrel Bisulfate (Plavix) 75 mg PO DAILY [facility] Last Admin: 02/28/18 09:01 Dose: 75 mg Diltiazem HCl (Cardizem) 90 mg PO Q8H [facility] Last Admin: 02/28/18 05:02 Dose: 90 mg Finasteride (Proscar) 5 mg PO DAILY [facility] Last Admin: 02/28/18 09:01 Dose: 5 mg Furosemide (Lasix) 40 mg IVP Q12 [facility] Last Admin: 02/28/18 09:02 Dose: 40 mg Levalbuterol HCl (Xopenex) 1.25 mg IH Q6H [facility] Last Admin: 02/28/18 07:53 Dose: 1.25 mg Levalbuterol HCl (Xopenex) 1.25 mg IH Q4H PRN PRN Reason: Shortness of Breath Last Admin: 02/26/18 08:44 Dose: 1.25 mg Potassium Chloride (K-Dur 20 Meq Er Tab) 20 meq PO BRK [facility] Last Admin: 02/28/18 08:47 Dose: 20 meq Tamsulosin HCl (Flomax) 0.4 mg PO DAILY [facility] Last Admin: 02/28/18 09:01 Dose: 0.4 mg - Labs Labs: 02/28/18 06:45 02/28/18 06:45 PT 18.3 SECONDS (9.4-12.5) H 02/24/18 04:20 INR 1.59 02/24/18 04:20 APTT 31.7 Seconds (25.1-36.5) 02/24/18 04:20 - Constitutional Appears: Well, No Acute Distress - Head Exam Head Exam: ATRAUMATIC, NORMOCEPHALIC - Eye Exam Eye Exam: Normal appearance Pupil Exam: NORMAL ACCOMODATION - Respiratory Exam Respiratory Exam: Clear to Ausculation Bilateral, NORMAL BREATHING PATTERN - Cardiovascular Exam Cardiovascular Exam: REGULAR RHYTHM, +S1, +S2 - GI/Abdominal Exam GI & Abdominal Exam: Soft, Normal Bowel Sounds. absent: Distended, Tenderness - Extremities Exam Extremities Exam: Pedal Edema - Neurological Exam Neurological Exam: Alert, Awake, Oriented x3 - Psychiatric Exam Psychiatric exam: Normal Affect, Normal Mood Assessment and Plan - Assessment and Plan (Free Text) Assessment: 82 year old male with past medical history of CAD, atrial fibrillation, hypertension, HLD, aortic stenosis status post aortic bioprosthetic valve presents with shortness of breath, heart palpitations, and cough. Plan: Atrial fibrillation with Rapid Ventricular Response -Patient rate controlled now and no longer in RVR. -Patient has history of atrial fibrillation -Telemetry strip (02/28 over night) showed rate 78-132 rhythm A. fib -HR 119 this morning -EKG (02/24) showed atrial fibrillation with RVR with HR of 137, QRSd: 132, and QTc: 480 -Chest X ray (02/24): moderate cardiomegaly, vascular congestion -continue diltiazem PO 60mg q8 as per Dr. Ruelas -continue coreg 6.25 mg BID PO as per Dr. Amor. -hold Eliquis 2.5 mg BID -start lovenox -Dr. Michael has been consulted for cardiology at [facility]. Dr. Amor has also been contacted regarding the case for recommendations. Congestive Heart Failure likely 2/2 to Aortic stenosis, Hx of CAD -Echocardiogram on 02/25/18 showed 33.9% ejection fraction, biatrial enlargement, dilated right ventricle, normal left ventricle size, moderate left ventricular systolic dysfunction with global hypokinesis. Mild to moderate aortic stenosis, moderate mitral regurgitation, and mild tricuspid regurgitation present. -Echocardiogram on 02/16/18 showed 46% ejection fraction, left ventricle was moderately dilated, left ventricular hypertrophy, moderate hypokinesis in inferior wall, severe diastolic dysfunction, dilated right ventricle and restenosed aortic valve. -Cardiac catheterization done by Dr. Amor in [facility]: severe occlusion of LAD (99%), DI (100%) occlusion, obtuse marginal artery 1 (100%) occlusion, obtuse marginal artery 2 (99%) occlusion, and RCA (100%) occlusion -BNP: 3880 -Digoxin blood level: 1.0 on 02/25 -d/c Diltiazem drip and monitor today -will start diltiazem PO 60mg q8 -Coreg decreased to 3.125 mg PO BID, will f/u Dr. Amor -Lasix 40 mg IVP Q12 -Eliquis 2.5 mg BID -Plavix 75 mg daily -Aspirin was stopped since patient on eliquis. -Dr. Amor recommends catherization on Thursday - f/u Respiratory Distress likely 08/28 to newly diagnosed COPD or CHF -Patient denies shortness of breath today. -ABG (02/26): pO2: 92, pH: 7.42, PCO2: 33.3, O2 Saturation: 98.4 -Dr. Ibarra has been consulted for pulmonary consult. Follow recommendations. -Patient on xopenex 1.25 IH Q6 and xopenex 1.25 IH Q4PRN. -Consider BiPap Hx of BPH -continue finasteride 5 mg and tamsulosin 0.4 mg as per home regimen. Anemia -Hb 13.9 today. Leukocytosis likely secondary to stress response from atrial fibrillation -WBC 12.7 today from 12.8 on 02/27 -likely etiology: secondary to A. fib stress response Elevated Troponin -Troponin: 14.6 at [facility] but was 0.35 twice on 02/24 likely secondary to atrial fibrillation and NSTEMI on 02/16 which is less than 2 weeks ago. Patient seen and plan discussed with Dr. Forrest. <Sandy Forrest - Last Filed: 02/28/18 21:32> Objective - Vital Signs/Intake and Output Vital Signs (last 24 hours): Temp Pulse Resp BP Pulse Ox 98.6 F 127 H 18 134/67 98 02/28/18 18:00 02/28/18 20:17 02/28/18 18:00 02/28/18 20:17 02/28/18 18:00 Intake and Output: 02/28/18 03/01/18 18:59 06:59 Intake Total 480 Output Total 900 Balance -420 - Medications Medications: Current Medications Apixaban (Eliquis) 2.5 mg PO BID [facility] PRN Reason: Protocol Last Admin: 02/28/18 09:01 Dose: 2.5 mg Atorvastatin Calcium (Lipitor) 20 mg PO DAILY [facility] Last Admin: 02/28/18 09:01 Dose: 20 mg Carvedilol (Coreg) 6.25 mg PO BID [facility] Last Admin: 02/28/18 17:27 Dose: 6.25 mg Clopidogrel Bisulfate (Plavix) 75 mg PO DAILY [facility] Last Admin: 02/28/18 09:01 Dose: 75 mg Diltiazem HCl (Cardizem) 90 mg PO Q8H [facility] Last Admin: 02/28/18 20:17 Dose: 90 mg Enoxaparin Sodium (Lovenox) 85 mg SC Q12 [facility] PRN Reason: Protocol Finasteride (Proscar) 5 mg PO DAILY [facility] Last Admin: 02/28/18 09:01 Dose: 5 mg Furosemide (Lasix) 40 mg IVP DAILY [facility] Levalbuterol HCl (Xopenex) 1.25 mg IH Q6H [facility] Last Admin: 02/28/18 20:50 Dose: 1.25 mg Levalbuterol HCl (Xopenex) 1.25 mg IH Q4H PRN PRN Reason: Shortness of Breath Last Admin: 02/26/18 08:44 Dose: 1.25 mg Potassium Chloride (K-Dur 20 Meq Er Tab) 20 meq PO BRK [facility] Last Admin: 02/28/18 08:47 Dose: 20 meq Tamsulosin HCl (Flomax) 0.4 mg PO DAILY [facility] Last Admin: 02/28/18 09:01 Dose: 0.4 mg - Labs Labs: 02/28/18 06:45 02/28/18 06:45 PT 18.3 SECONDS (9.4-12.5) H 02/24/18 04:20 INR 1.59 02/24/18 04:20 APTT 31.7 Seconds (25.1-36.5) 02/24/18 04:20 Attending/Attestation - Attestation I have personally seen and examined this patient.: Yes I have fully participated in the care of the patient.: Yes I have reviewed all pertinent clinical information, including history, physical exam and plan: Yes Notes (Text): Patient seen and examined by me at 10:45AM with resident. Case including HPI, physical exam, and assessment and plan discussed with resident. Agree with above with following additions/corrections. Patient states he is doing feeling good. Feels tired in the morning. Patient's resident care spec at bedside. Patient denying cough or shortness of breath. States he likes the food in the hospital and is eating a lot. No chest pain or palpitations. No headaches or dizziness. No fevers or chills. No nausea, vomiting, or abdominal pain. No dysuria. Physical exam: Gen: Awake and alert sitting up in bed in no acute distress HEENT: Normocephalic, atraumatic. Extraocular muscles intact, pupils equal reactive. Oropharynx is pink and moist, no pharyngeal erythema or exudate appreciated. Neck is supple. Cardiovascular: Irregularly irregular rhythm. Tachycardiac S1, S2. No murmurs, rubs, or gallops appreciated. Positive bilateral lower extremity pitting edema. Pulmonary: Normal respiratory effort. Decreased breath sounds. Positive wheezing throughout. No rhonchi or rales appreciated. Gastrointestinal: Soft, nontender, nondistended, positive globular abdomen, positive bowel sounds all 4 quadrants, no guarding. Musculoskeletal: Moves all extremities, no calf tenderness Central nervous system: AAO x 3. 5/5 muscle strength all extremities. Dermatologic: Skin warm and dry Assessment and plan: Patient is an 82-year-old male with past medical history significant for coronary artery disease status post CABG, systolic CHF, atrial fibrillation, hypertension, hyperlipidemia, and aortic stenosis status post AVR that presented to the emergency room with cough, shortness of breath, intermittent chest pain. 1. Atrial fibrillation with rapid ventricular response. Cardiology following, recommendations appreciated. Cardizem drip stopped. Continue Cardizem 90mg PO q8hrs. Coreg increased to 6.25mg PO BID. Continue Eliquis. Continue to monitor on telemetry. 2. Shortness of breath. Multifactorial. Likely secondary to CHF exacerbation, atrial fibrillation with RVR, and likely underlying COPD. Resolved per patient. Continue with nebulizer treatments. Continue with O2 via nasal cannula as needed. Pulmonary following, recommendations appreciated, will need outpatient PFTs. 3. Coronary artery disease, status post CABG. Elevated troponin. Chest pain free. Status post cardiac catheterization at [facility] which showed severe occlusion of LAD (99%), DI (100%) occlusion, obtuse marginal artery 1 ( 100%) occlusion, obtuse marginal artery 2 (99%) occlusion, and RCA (100%) occlusion. Troponin downtrended. Cardiology following, recommendations appreciated. Continue Plavix. Continue Coreg. Continue Lipitor. Discussed with Dr. Amor. Romario held. Placed on Lovenox 1mg/kg q12hrs. Probable cardiac cath on Thursday03/02/18. 4. Acute on chronic systolic CHF exacerbation. Acute exacerbation resolved. Cardiology following, recommendations appreciated. 2D echo per relations mgr shows bilateral enlargement, dilated right ventricle, moderate left ventricular systolic dysfunction with global hypokinesis, [id number] aortic stenosis, moderate mitral regurgitation, mild tricuspid regurgitation (please see official read for full details). Continue Lasix and Coreg. Continue to monitor daily weights. Continue to monitor strict I's and O's. 5. Essential hypertension. Continue with Coreg, Cardizem, and Lasix. 6. Hyperlipidemia. Continue Lipitor 7. BPH. Continue flomax and finasteride 8. DVT prophylaxis. Eliquis 9. Patient is a DNR/DNI Case was discussed in detail with the patient and patient's resident care spec at bedside regarding current diagnosis and treatment plan.
--- NOTE | 2018-02-28 14:29 | RAD ---
Date of service: 02/28/2018 PROCEDURE: CHEST RADIOGRAPH, 1 VIEW HISTORY: CHF COMPARISON: 02/24/2018 FINDINGS: LUNGS: Clear. PLEURA: No pneumothorax or pleural fluid seen. CARDIOVASCULAR: Moderate to severe cardiomegaly OSSEOUS STRUCTURES: Sternal wires VISUALIZED UPPER ABDOMEN: Normal. OTHER FINDINGS: None. IMPRESSION: No active disease.
--- NOTE | 2018-02-28 18:37 | PN ---
Copied To: Juarez Michael MD Attending MD: Juarez Michael MD DATE: 02/28/2018 SUBJECTIVE: The patient is still in rapid AFib and he becomes tachycardiac on minimal exertion. He denies chest pain. PHYSICAL EXAMINATION: VITAL SIGNS: Blood pressure 119/69, heart rate 131, temperature 97.8, respirations 20. HEENT: Normocephalic. CHEST: Bilateral rhonchi. HEART: S1 and S2, regular. ABDOMEN: Soft. EXTREMITIES: 1+ pitting edema. LABORATORY DATA: Hemoglobin and hematocrit are 12.7 and 39.3, white count 12.7, platelet count 165,000. SMA-7: Sodium 142, potassium 4.5, chloride 95, CO2 of 39, glucose 109, BUN 29, creatinine 1.1. ASSESSMENT: 1. Rapid atrial fibrillation. 2. Status post [id number] myocardial infarction. 3. Ischemic cardiomyopathy. 4. Status post bioprosthetic aortic valve replacement. RECOMMENDATIONS: Continue Cardizem 90 mg every 8 hours, increase Coreg to 6.25 mg twice a day, continue Eliquis 2.5 mg twice a day, K-dur 20 mEq once a day, reduce Lasix to 40 mg p.o. once a day, continue Plavix 75 mg once a day. Obtain chest x-ray one view, AP view. Case was discussed with Dr. Forrest. The patient will be kept in the hospital and Cardiology care will be transferred to Dr. Fermin Thomas by tomorrow, Dr. Amor will be the commercial appraiser. Juarez Michael MD
[2018-02-28] MEDS: Enoxaparin 100 mg Syringe SC SCH (21:43)
[2018-03-01] MEDS: Levalbuterol 1.25 MG/3 ML Inhal Soln UD IH SCH ×4 (03:20→19:50)
[2018-03-01 07:31] LABS: BASO # 0.03 K/mm3 (0.0-2.0); BASO % 0.3 % (0.0-3.0); EOS # 0.8 (0.0-0.7); EOS % 6.8 % (1.5-5.0); GRAN # 8.12 (1.4-6.5); GRAN % 73.6 % (50.0-68.0); HEMOGLOBIN 12.7 g/dL (14.0-18.0); LYMPH # 1.6 (1.2-3.4); LYMPH % 14.1 % (22.0-35.0); MEAN CELL VOLUME 90.5 fl (80.0-105.0); MEAN CORPUSCULAR HEMOGLOBIN 28.8 pg (25.0-35.0); MEAN CORPUSCULAR HGB CONC 31.8 g/dl (31.0-37.0); MEAN PLATELET VOLUME 11.1 fl (7.0-11.0); MONO # 0.6 (0.1-0.6); MONO % 5.2 % (1.0-6.0); RBC 4.41 10^6/uL (3.5-6.1)
[2018-03-01 07:38] LABS: ALB/GLOB RATIO 1.1 (1.1-1.8); ALBUMIN 3.6 g/dL (3.0-4.8); ALT/SGPT 68 U/L (7-56); AST/SGOT 26 U/L (17-59); BLOOD UREA NITROGEN 29 mg/dL (7-21); CALCIUM 8.7 mg/dL (8.4-10.5); GFR AFRICAN-AMERICAN > 60; GFR NON-AFRICAN AMERICAN > 60
[2018-03-01] MEDS: Potassium Chloride 20 mEq ER Tab PO SCH (08:41)
[2018-03-01] MEDS: Enoxaparin 100 mg Syringe SC SCH ×2 (09:21→22:06)
--- NOTE | 2018-03-01 14:50 | CP.PCM.PN ---
<Janae Camarena - Last Filed: 03/01/18 20:52> Subjective - Date & Time of Evaluation Date of Evaluation: 03/01/18 Time of Evaluation: 14:46 - Subjective Subjective: Janae Camarena, PGY-1, Internal Medicine note for Dr. Peters Patient seen and examined this morning. No significant overnight events. Patient reports improved abdominal distension. Patient denies headache, dizziness, chest pain, heart palpitations, shortness of breath, nausea, vomiting , constipation, diarrhea, dysuria, and, hematuria. Objective - Vital Signs/Intake and Output Vital Signs (last 24 hours): Temp Pulse Resp BP Pulse Ox 98.1 F 61 18 115/58 L 97 03/01/18 11:51 03/01/18 11:51 03/01/18 11:51 03/01/18 11:51 03/01/18 06:00 Intake and Output: 03/01/18 03/01/18 06:59 18:59 Intake Total 120 Output Total 300 Balance -180 - Medications Medications: Current Medications Apixaban (Eliquis) 2.5 mg PO BID [facility] PRN Reason: Protocol Last Admin: 02/28/18 09:01 Dose: 2.5 mg Atorvastatin Calcium (Lipitor) 20 mg PO DAILY [facility] Last Admin: 03/01/18 09:23 Dose: 20 mg Carvedilol (Coreg) 6.25 mg PO BID [facility] Last Admin: 03/01/18 09:24 Dose: 6.25 mg Clopidogrel Bisulfate (Plavix) 75 mg PO DAILY [facility] Last Admin: 03/01/18 09:27 Dose: 75 mg Diltiazem HCl (Cardizem) 90 mg PO Q8H [facility] Last Admin: 03/01/18 11:27 Dose: 90 mg Enoxaparin Sodium (Lovenox) 85 mg SC Q12 [facility] PRN Reason: Protocol Stop: 03/02/18 08:00 Last Admin: 03/01/18 09:21 Dose: 85 mg Finasteride (Proscar) 5 mg PO DAILY [facility] Last Admin: 03/01/18 09:24 Dose: 5 mg Furosemide (Lasix) 40 mg IVP DAILY [facility] Last Admin: 03/01/18 09:24 Dose: 40 mg Levalbuterol HCl (Xopenex) 1.25 mg IH Q6H [facility] Last Admin: 03/01/18 14:00 Dose: 1.25 mg Levalbuterol HCl (Xopenex) 1.25 mg IH Q4H PRN PRN Reason: Shortness of Breath Last Admin: 02/26/18 08:44 Dose: 1.25 mg Potassium Chloride (K-Dur 20 Meq Er Tab) 20 meq PO BRK [facility] Last Admin: 03/01/18 08:41 Dose: 20 meq Tamsulosin HCl (Flomax) 0.4 mg PO DAILY [facility] Last Admin: 03/01/18 09:23 Dose: 0.4 mg - Labs Labs: 03/01/18 06:45 03/01/18 06:30 PT 18.3 SECONDS (9.4-12.5) H 02/24/18 04:20 INR 1.59 02/24/18 04:20 APTT 31.7 Seconds (25.1-36.5) 02/24/18 04:20 - Constitutional Appears: Well, Non-toxic - Head Exam Head Exam: ATRAUMATIC, NORMOCEPHALIC - Eye Exam Eye Exam: EOMI Pupil Exam: PERRL - Respiratory Exam Respiratory Exam: Wheezes Additional comments: Improved intermittent wheezing - Cardiovascular Exam Cardiovascular Exam: RRR - GI/Abdominal Exam GI & Abdominal Exam: Soft, Normal Bowel Sounds - Extremities Exam Extremities Exam: Full ROM, Normal Inspection - Neurological Exam Neurological Exam: Alert, Awake, CN II-XII Intact, Oriented x3 Neuro motor strength exam: Left Upper Extremity: 5, Right Upper Extremity: 5, Left Lower Extremity: 5, Right Lower Extremity: 5 - Psychiatric Exam Psychiatric exam: Normal Affect, Normal Mood - Skin Skin Exam: Dry, Intact, Normal Color Assessment and Plan - Assessment and Plan (Free Text) Assessment: 82 year old male with past medical history of CAD, atrial fibrillation, hypertension, hyperlipidemia, aortic stenosis status post aortic bioprosthetic valve presents with shortness of breath, heart palpitations, and cough. Plan: 1. Atrial fibrillation with Rapid Ventricular Response-resolved -Patient rate controlled now and no longer in RVR. -Patient has history of atrial fibrillation -Telemetry strip (02/26) shows atrial fibrillation at heart rate of 84 bpm -EKG (02/24) showed atrial fibrillation with RVR with HR of 137, QRSd: 132, and QTc: 480 -Chest X ray (02/28): unchanged from 02/24 -Chest X ray (02/24): moderate cardiomegaly, vascular congestion -Patient's last heart rate was 61 at 11:51. Highest heart rate today was 105 and lowest was 55. -Diltiazem drip stopped. Patient currently on diltiazem 90 mg PO Q8. -Per Dr. Amor and Dr. Michael recommendation, coreg is 6.25 mg BID PO. -Eliquis 2.5 mg BID held. -Dr. Michael has been consulted for cardiology at [facility]. Dr. Amor has also been contacted regarding the case for recommendations. Continue to follow recommendations of cardiology. 2. Congestive Heart Failure likely 2/2 to Aortic stenosis, Hx of CAD -Echocardiogram on 02/25/18 showed 33.9% ejection fraction, biatrial enlargement, dilated right ventricle, normal left ventricle size, moderate left ventricular systolic dysfunction with global hypokinesis. Mild to moderate aortic stenosis, moderate mitral regurgitation, and mild tricuspid regurgitation present. -Echocardiogram on 02/16/18 showed 46% ejection fraction, left ventricle was moderately dilated, left ventricular hypertrophy, moderate hypokinesis in inferior wall, severe diastolic dysfunction, dilated right ventricle and restenosed aortic valve. -Cardiac catheterization done by Dr. Amor in [facility] severe occlusion of LAD (99%), DI (100%) occlusion, obtuse marginal artery 1 (100%) occlusion, obtuse marginal artery 2 (99%) occlusion, and RCA (100%) occlusion -BNP: 3880 -Digoxin blood level: 1.0 on 02/25 -Diltiazem 90 mg PO Q8 -Lipitor 20 mg daily. -Coreg 6.25 mg PO will be started and continued BID -Lasix 40 mg IVP daily. -Eliquis 2.5 mg BID held. -Plavix 75 mg daily -Aspirin was stopped since patient on eliquis. -Dr. Amor will perform PCI procedure tomorrow. As per Dr. Amor, Eliquis has been held. NPO expect meds after midnight. No lovenox tomorrow. CBC, CMP, and PT /INR labs to be ordered tomorrow. 3. Respiratory Distress likely 2/2 to newly diagnosed COPD or CHF -Patient with no current complaints on O2 NC 2L. -ABG (02/26): pO2: 92, pH: 7.42, PCO2: 33.3, O2 Saturation: 98.4 -Dr. Ibarra was consulted for pulmonary consult. Follow recommendations. -Patient on xopenex 1.25 IH Q6 and xopenex 1.25 IH Q4PRN. 4. Hx of BPH -Finasteride 5 mg and Tamsulosin 0.4 mg as per home regimen. 5. Normocytic Anemia - Hgb: 12.7 from 12.7 yesterday. -MCV: 90.5 fror 91.5 yesterday. -Continue to monitor 6. Leukocytosis likely secondary to stress response from atrial fibrillation- resolved -WBC: 11 today from 12.7 on 02/28. Leukocytosis resolved. 7. Elevated Troponin -Troponin: 14.6 at [facility] but was 0.35 twice on 02/24 likely secondary to atrial fibrillation and NSTEMI on 02/16. <Chu Peters - Last Filed: 03/02/18 15:40> Objective - Vital Signs/Intake and Output Vital Signs (last 24 hours): Temp Pulse Resp BP Pulse Ox 98.3 F 110 H 18 117/68 95 03/02/18 12:00 03/02/18 14:05 03/02/18 12:00 03/02/18 14:05 03/02/18 06:00 Intake and Output: 03/02/18 03/02/18 06:59 18:59 Intake Total 0 Output Total 450 Balance -450 - Medications Medications: Current Medications Apixaban (Eliquis) 2.5 mg PO BID [facility] PRN Reason: Protocol Aspirin (Aspirin Chewable) 81 mg PO DAILY [facility] Atorvastatin Calcium (Lipitor) 20 mg PO DAILY [facility] Last Admin: 03/02/18 14:08 Dose: 20 mg Carvedilol (Coreg) 6.25 mg PO BID [facility] Last Admin: 03/02/18 09:05 Dose: 6.25 mg Clopidogrel Bisulfate (Plavix) 75 mg PO DAILY [facility] Last Admin: 03/02/18 09:05 Dose: 75 mg Diltiazem HCl (Cardizem) 90 mg PO Q8H [facility] Last Admin: 03/02/18 14:05 Dose: 90 mg Finasteride (Proscar) 5 mg PO DAILY [facility] Last Admin: 03/02/18 14:08 Dose: 5 mg Furosemide (Lasix) 40 mg IVP DAILY [facility] Last Admin: 03/01/18 09:24 Dose: 40 mg Sodium Chloride (Sodium Chloride 0.9%) 1,000 mls @ 50 mls/hr IV .Q20H [facility] Stop: 03/02/18 18:00 Last Admin: 03/02/18 14:27 Dose: Not Given Levalbuterol HCl (Xopenex) 1.25 mg IH Q6H [facility] Last Admin: 03/02/18 13:41 Dose: 1.25 mg Levalbuterol HCl (Xopenex) 1.25 mg IH Q4H PRN PRN Reason: Shortness of Breath Last Admin: 02/26/18 08:44 Dose: 1.25 mg Losartan Potassium (Cozaar) 25 mg PO DAILY [facility] Potassium Chloride (K-Dur 20 Meq Er Tab) 20 meq PO BRK [facility] Last Admin: 03/01/18 08:41 Dose: 20 meq Tamsulosin HCl (Flomax) 0.4 mg PO DAILY [facility] Last Admin: 03/02/18 14:08 Dose: 0.4 mg - Labs Labs: 03/02/18 06:30 03/02/18 06:30 PT 12.2 SECONDS (9.4-12.5) 03/02/18 06:30 INR 1.06 03/02/18 06:30 APTT 39.0 Seconds (25.1-36.5) H 03/02/18 06:30 Attending/Attestation - Attestation I have personally seen and examined this patient.: Yes I have fully participated in the care of the patient.: Yes I have reviewed all pertinent clinical information, including history, physical exam and plan: Yes Notes (Text): 03/02/18 15:31 Attending note; Patient seen and examined with resident. Patient is an 82-year-old male with past medical history significant for coronary artery disease status post CABG, systolic CHF, atrial fibrillation, hypertension, hyperlipidemia, and aortic stenosis status post AVR that presented to the emergency room with cough, shortness of breath, intermittent chest pain. 1. Atrial fibrillation with rapid ventricular response. Treated with Cardizem drip. now on po Cardizem 90mg PO q8hrs. Coreg increased to 6.25mg PO BID. currently on Lovenox. Eliquis on hold. Case discussed with Dr. Amor. Plan for cardiac cath tomorrow. 2. Shortness of breath. resolved. Multifactorial. Likely secondary to CHF exacerbation, atrial fibrillation with RVR, and likely underlying COPD. Resolved per patient. Continue with nebulizer treatments. Continue with O2 via nasal cannula as needed. Pulmonary evaluation appreciated. will need outpatient PFTs. 3. Acute on chronic systolic CHF exacerbation. resolved. 2D echo shows bilateral enlargement, dilated right ventricle, moderate left ventricular systolic dysfunction with global hypokinesis, [id number] aortic stenosis, moderate mitral regurgitation, mild tricuspid regurgitation Continue Lasix and Coreg. Continue to monitor daily weights. Continue to monitor strict I's and O' s. 4. BPH. Continue flomax and finasteride Patient is a DNR/DNI Case was discussed in detail with the patient at bedside regarding current diagnosis and treatment plan. Upon discharge the patient will follow up with PMD and cardiology Dr. Amor.
[2018-03-01 21:24] LABS: ALB/GLOB RATIO 1.1 (1.1-1.8); ALBUMIN 3.4 g/dL (3.0-4.8); ALT/SGPT 63 U/L (7-56); AST/SGOT 37 U/L (17-59); BLOOD UREA NITROGEN 36 mg/dL (7-21); CALCIUM 8.5 mg/dL (8.4-10.5); GFR AFRICAN-AMERICAN > 60; GFR NON-AFRICAN AMERICAN > 60
[2018-03-01 21:32] LABS: B-TYPE NATRIURETIC PEPTIDE 2280 pg/mL (0-450)
[2018-03-02] MEDS: Levalbuterol 1.25 MG/3 ML Inhal Soln UD IH SCH ×4 (03:13→19:48)
[2018-03-02 07:28] LABS: BASO # 0.04 K/mm3 (0.0-2.0); BASO % 0.4 % (0.0-3.0); EOS # 0.4 (0.0-0.7); EOS % 3.5 % (1.5-5.0); GRAN # 8.64 (1.4-6.5); GRAN % 81.4 % (50.0-68.0); HEMOGLOBIN 12.8 g/dL (14.0-18.0); LYMPH # 1.2 (1.2-3.4); LYMPH % 10.9 % (22.0-35.0); MEAN CELL VOLUME 89.4 fl (80.0-105.0); MEAN CORPUSCULAR HEMOGLOBIN 28.8 pg (25.0-35.0); MEAN CORPUSCULAR HGB CONC 32.2 g/dl (31.0-37.0); MEAN PLATELET VOLUME 10.8 fl (7.0-11.0); MONO # 0.4 (0.1-0.6); MONO % 3.8 % (1.0-6.0); RBC 4.45 10^6/uL (3.5-6.1); RED CELL DISTRIBUTION WIDTH 13.9 % (11.5-14.5); WHITE BLOOD COUNT 10.6 10^3/ul (4.5-11.0)
[2018-03-02 07:40] LABS: INR 1.06; PROTHROMBIN TIME 12.2 SECONDS (9.4-12.5)
[2018-03-02 08:14] LABS: ALBUMIN 3.6 g/dL (3.0-4.8); ALT/SGPT 61 U/L (7-56); AST/SGOT 30 U/L (17-59); BLOOD UREA NITROGEN 29 mg/dL (7-21); CALCIUM 8.5 mg/dL (8.4-10.5); GFR AFRICAN-AMERICAN > 60; GFR NON-AFRICAN AMERICAN > 60
[2018-03-02] MEDS ORDERED: Lidocaine PF 2% (5 ml) Inj (For Cardiac Arrhy) ONE ×2 (09:37→10:34)
[2018-03-02] MEDS ORDERED: Phenylephrine 10 mg/ml Inj ONE (09:37)
[2018-03-02] MEDS ORDERED: Iohexol 350mgl/ml 50 ML ONE (09:37)
[2018-03-02] MEDS ORDERED: Iodixanol 320 MG/ML 200 ML BOTTLE IV ONE (09:38)
[2018-03-02] MEDS ORDERED: Iodixanol 320 MG/ML 100 ML BOTTLE IV ONE (09:38)
[2018-03-02] MEDS ORDERED: Midazolam 2 MG/2 ML VIAL ONE (10:11)
[2018-03-02] MEDS ORDERED: Nitroglycerin 50mg in D5W 50 MG/250 ML BOTTLE IV ONE (10:30)
--- NOTE | 2018-03-02 12:08 | CP.PCM.PN ---
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 Plan to uptitrate Coreg and d/c cardizem as out patient Start low dose ACEI/ARB Plan d/w the medical referral coordinator Objective - Vital Signs/Intake and Output Vital Signs (last 24 hours): Temp Pulse Resp BP Pulse Ox 97.6 F 93 H 20 107/59 L 95 03/02/18 06:00 03/02/18 09:05 03/02/18 06:00 03/02/18 09:05 03/02/18 06:00 Intake and Output: 03/02/18 03/02/18 06:59 18:59 Intake Total 0 Output Total 450 Balance -450 - Medications Medications: Current Medications Apixaban (Eliquis) 2.5 mg PO BID [facility] PRN Reason: Protocol Aspirin (Aspirin Chewable) 81 mg PO DAILY [facility] Atorvastatin Calcium (Lipitor) 20 mg PO DAILY [facility] Last Admin: 03/01/18 09:23 Dose: 20 mg Carvedilol (Coreg) 6.25 mg PO BID [facility] Last Admin: 03/02/18 09:05 Dose: 6.25 mg Clopidogrel Bisulfate (Plavix) 75 mg PO DAILY [facility] Last Admin: 03/02/18 09:05 Dose: 75 mg Diltiazem HCl (Cardizem) 90 mg PO Q8H [facility] Last Admin: 03/02/18 05:36 Dose: 90 mg Finasteride (Proscar) 5 mg PO DAILY [facility] Last Admin: 03/01/18 09:24 Dose: 5 mg Furosemide (Lasix) 40 mg IVP DAILY [facility] Last Admin: 03/01/18 09:24 Dose: 40 mg Sodium Chloride (Sodium Chloride 0.9%) 1,000 mls @ 50 mls/hr IV .Q20H [facility] A Stop: 03/02/18 18:00 Levalbuterol HCl (Xopenex) 1.25 mg IH Q6H [facility] A Last Admin: 03/02/18 07:49 Dose: 1.25 mg Levalbuterol HCl (Xopenex) 1.25 mg IH Q4H PRN PRN Reason: Shortness of Breath Last Admin: 02/26/18 08:44 Dose: 1.25 mg Potassium Chloride (K-Dur 20 Meq Er Tab) 20 meq PO BRK [facility] A Last Admin: 03/01/18 08:41 Dose: 20 meq Tamsulosin HCl (Flomax) 0.4 mg PO DAILY [facility] Last Admin: 03/01/18 09:23 Dose: 0.4 mg - Labs Labs: 03/02/18 06:30 03/02/18 06:30 PT 12.2 SECONDS (9.4-12.5) 03/02/18 06:30 INR 1.06 03/02/18 06:30 APTT 39.0 Seconds (25.1-36.5) H 03/02/18 06:30
--- NOTE | 2018-03-02 12:36 | CP.PCM.PN ---
<Janae Camarena - Last Filed: 03/02/18 15:32> Subjective - Date & Time of Evaluation Date of Evaluation: 03/02/18 Time of Evaluation: 12:33 - Subjective Subjective: Janae Camarena, PGY-1, Internal Medicine Progress note for Dr. Peters Patient seen and examined this morning. Overnight events include 15 beats of ventricular tachycardia. Patient did not have any symptoms, electrolyte imbalances, or unstable vitals during this episode. Patient also had 2 episodes of epistaxis last night. First episode self-resolved. Second episode resolved with 5 minutes of compression. Patient denies chest pain, shortness of breath, left arm pain, jaw pain, diaphoresis, nausea, vomiting, constipation, diarrhea, dysuria, and hematuria. Objective - Vital Signs/Intake and Output Vital Signs (last 24 hours): Temp Pulse Resp BP Pulse Ox 98.3 F 100 H 18 115/75 95 03/02/18 12:00 03/02/18 12:00 03/02/18 12:00 03/02/18 12:00 03/02/18 06:00 Intake and Output: 03/02/18 03/02/18 06:59 18:59 Intake Total 0 Output Total 450 Balance -450 - Medications Medications: Current Medications Apixaban (Eliquis) 2.5 mg PO BID [facility] PRN Reason: Protocol Aspirin (Aspirin Chewable) 81 mg PO DAILY [facility] Atorvastatin Calcium (Lipitor) 20 mg PO DAILY [facility] Last Admin: 03/01/18 09:23 Dose: 20 mg Carvedilol (Coreg) 6.25 mg PO BID [facility] Last Admin: 03/02/18 09:05 Dose: 6.25 mg Clopidogrel Bisulfate (Plavix) 75 mg PO DAILY [facility] Last Admin: 03/02/18 09:05 Dose: 75 mg Diltiazem HCl (Cardizem) 90 mg PO Q8H [facility] Last Admin: 03/02/18 05:36 Dose: 90 mg Finasteride (Proscar) 5 mg PO DAILY [facility] Last Admin: 03/01/18 09:24 Dose: 5 mg Furosemide (Lasix) 40 mg IVP DAILY [facility] Last Admin: 03/01/18 09:24 Dose: 40 mg Sodium Chloride (Sodium Chloride 0.9%) 1,000 mls @ 50 mls/hr IV .Q20H [facility] Stop: 03/02/18 18:00 Levalbuterol HCl (Xopenex) 1.25 mg IH Q6H [facility] Last Admin: 03/02/18 07:49 Dose: 1.25 mg Levalbuterol HCl (Xopenex) 1.25 mg IH Q4H PRN PRN Reason: Shortness of Breath Last Admin: 02/26/18 08:44 Dose: 1.25 mg Losartan Potassium (Cozaar) 25 mg PO DAILY [facility] Potassium Chloride (K-Dur 20 Meq Er Tab) 20 meq PO BRK [facility] Last Admin: 03/01/18 08:41 Dose: 20 meq Tamsulosin HCl (Flomax) 0.4 mg PO DAILY [facility] Last Admin: 03/01/18 09:23 Dose: 0.4 mg - Labs Labs: 03/02/18 06:30 03/02/18 06:30 PT 12.2 SECONDS (9.4-12.5) 03/02/18 06:30 INR 1.06 03/02/18 06:30 APTT 39.0 Seconds (25.1-36.5) H 03/02/18 06:30 - Constitutional Appears: Well, Non-toxic - Head Exam Head Exam: ATRAUMATIC, NORMOCEPHALIC - Eye Exam Eye Exam: EOMI Pupil Exam: PERRL - Respiratory Exam Respiratory Exam: Wheezes Additional comments: diffuse wheezing - Cardiovascular Exam Cardiovascular Exam: Irregular Rhythm - GI/Abdominal Exam GI & Abdominal Exam: Distended, Firm, Normal Bowel Sounds - Extremities Exam Extremities Exam: Full ROM, Normal Inspection - Neurological Exam Neurological Exam: Alert, Awake, CN II-XII Intact, Oriented x3 Neuro motor strength exam: Left Upper Extremity: 5, Right Upper Extremity: 5, Left Lower Extremity: 5, Right Lower Extremity: 5 - Psychiatric Exam Psychiatric exam: Normal Affect, Normal Mood Assessment and Plan - Assessment and Plan (Free Text) Assessment: 82 year old male with past medical history of CAD, atrial fibrillation, hypertension, hyperlipidemia, aortic stenosis status post aortic bioprosthetic valve presents with shortness of breath, heart palpitations, and cough. Plan: 1. Atrial fibrillation with Rapid Ventricular Response -Patient has RVR for the second time. -Patient has history of atrial fibrillation -03/01, patient had 15 beats of ventricular tachycardia shown on telemetry strip, which then converted back to atrial fibrillation. Patient had no symptoms, vitals were stable, and there was no electrolyte imbalance. -EKG (02/24) showed atrial fibrillation with RVR with HR of 137, QRSd: 132, and QTc: 480 -Chest X ray (02/28): unchanged from 02/24 -Chest X ray (02/24): moderate cardiomegaly, vascular congestion -Patient's last heart rate was 100 at 12:00. Highest heart rate today was 103 and lowest was 93. -Diltiazem drip stopped. Patient currently on diltiazem 90 mg PO Q8. Per cardiology, plan is to discontinue diltiazem upon discharge and uptitrate coreg. -Coreg 6.25 mg PO BID -Eliquis 2.5 mg BID restarted today. -Low dose losartan 25 mg daily started today. -Dr. Michael has been consulted for cardiology at [facility]. Dr. Amor has also been contacted regarding the case for recommendations. Continue to follow recommendations of cardiology. 2. Systolic Congestive Heart Failure with ejection fraction less than 35% likely 2/2 to Aortic stenosis, Hx of CAD -Cardiac catherization done by Dr. Amor 03/02. Catherization shows good size OM2 98% stenosis and not receiving enough flow from OM1 graft. LAUREN stent was placed in OM2. -Echocardiogram on 02/25/18 showed 33.9% ejection fraction, biatrial enlargement, dilated right ventricle, normal left ventricle size, moderate left ventricular systolic dysfunction with global hypokinesis. Mild to moderate aortic stenosis, moderate mitral regurgitation, and mild tricuspid regurgitation present. -Echocardiogram on 02/16/18 showed 46% ejection fraction, left ventricle was moderately dilated, left ventricular hypertrophy, moderate hypokinesis in inferior wall, severe diastolic dysfunction, dilated right ventricle and restenosed aortic valve. -Cardiac catheterization done by Dr. Amor in [facility] severe occlusion of LAD (99%), DI (100%) occlusion, obtuse marginal artery 1 (100%) occlusion, obtuse marginal artery 2 (99%) occlusion, and RCA (100%) occlusion -Diltiazem 90 mg PO Q8 -Lipitor 20 mg daily. -Coreg 6.25 mg PO BID. -Lasix 40 mg IVP daily. -Aspirin 81, plavix 75, and eliquis 2.5 BID to be restarted today. Per Dr. Amor , patient should be on these three medications for one month. Following one month, Dr. Amor will discontinue either the aspirin or the plavix. -Due to patient's low ejection fraction, patient will be discharged with life vest and reassessed for ejection fraction 3 months after for ICD evaluation. 3. Respiratory Distress likely 2/2 to newly diagnosed COPD or CHF -Patient with no current complaints on O2 NC 2L. -ABG (02/26): pO2: 92, pH: 7.42, PCO2: 33.3, O2 Saturation: 98.4 -Dr. Ibarra was consulted for pulmonary consult. Follow recommendations. -Patient on xopenex 1.25 IH Q6 and xopenex 1.25 IH Q4PRN. 4. Hx of BPH -Finasteride 5 mg and Tamsulosin 0.4 mg as per home regimen. 5. Normocytic Anemia - Hgb: 10.6 from 12.7 yesterday. -MCV: 89.4 from 91.5 yesterday. -Continue to monitor 6. Leukocytosis likely secondary to stress response from atrial fibrillation- resolved -WBC: 10.6 today from 11 on 03/01. Leukocytosis resolved. 7. Elevated Troponin -Troponin: 14.6 at [facility] but was 0.35 twice on 02/24 likely secondary to atrial fibrillation and NSTEMI on 02/16. <Chu Peters - Last Filed: 03/02/18 15:57> Objective - Vital Signs/Intake and Output Vital Signs (last 24 hours): Temp Pulse Resp BP Pulse Ox 98.3 F 110 H 18 117/68 95 03/02/18 12:00 03/02/18 14:05 03/02/18 12:00 03/02/18 14:05 03/02/18 06:00 Intake and Output: 03/02/18 03/02/18 06:59 18:59 Intake Total 0 Output Total 450 Balance -450 - Medications Medications: Current Medications Apixaban (Eliquis) 2.5 mg PO BID [facility] PRN Reason: Protocol Aspirin (Aspirin Chewable) 81 mg PO DAILY [facility] Atorvastatin Calcium (Lipitor) 20 mg PO DAILY [facility] Last Admin: 03/02/18 14:08 Dose: 20 mg Carvedilol (Coreg) 6.25 mg PO BID [facility] Last Admin: 03/02/18 09:05 Dose: 6.25 mg Clopidogrel Bisulfate (Plavix) 75 mg PO DAILY [facility] Last Admin: 03/02/18 09:05 Dose: 75 mg Diltiazem HCl (Cardizem) 90 mg PO Q8H [facility] Last Admin: 03/02/18 14:05 Dose: 90 mg Finasteride (Proscar) 5 mg PO DAILY [facility] Last Admin: 03/02/18 14:08 Dose: 5 mg Furosemide (Lasix) 40 mg IVP DAILY [facility] Last Admin: 03/01/18 09:24 Dose: 40 mg Sodium Chloride (Sodium Chloride 0.9%) 1,000 mls @ 50 mls/hr IV .Q20H [facility] Stop: 03/02/18 18:00 Last Admin: 03/02/18 14:27 Dose: Not Given Levalbuterol HCl (Xopenex) 1.25 mg IH Q6H [facility] Last Admin: 03/02/18 13:41 Dose: 1.25 mg Levalbuterol HCl (Xopenex) 1.25 mg IH Q4H PRN PRN Reason: Shortness of Breath Last Admin: 02/26/18 08:44 Dose: 1.25 mg Losartan Potassium (Cozaar) 25 mg PO DAILY [facility] Potassium Chloride (K-Dur 20 Meq Er Tab) 20 meq PO BRK [facility] Last Admin: 03/01/18 08:41 Dose: 20 meq Tamsulosin HCl (Flomax) 0.4 mg PO DAILY [facility] Last Admin: 03/02/18 14:08 Dose: 0.4 mg - Labs Labs: 03/02/18 06:30 03/02/18 06:30 PT 12.2 SECONDS (9.4-12.5) 03/02/18 06:30 INR 1.06 03/02/18 06:30 APTT 39.0 Seconds (25.1-36.5) H 03/02/18 06:30 Attending/Attestation - Attestation I have personally seen and examined this patient.: Yes I have fully participated in the care of the patient.: Yes I have reviewed all pertinent clinical information, including history, physical exam and plan: Yes Notes (Text): 03/02/18 15:50 Attending note; Patient seen and examined with resident. s/p cardiac catheterization. Patient is an 82-year-old male with past medical history significant for coronary artery disease status post CABG, systolic CHF, atrial fibrillation, hypertension, hyperlipidemia, and aortic stenosis status post AVR that presented to the emergency room with cough, shortness of breath, intermittent chest pain. 1. Atrial fibrillation with rapid ventricular response. Continue po Cardizem 90mg PO q8hrs. Coreg increased to 6.25mg PO BID. Status post cardiac catheterization and drug-eluting stent placement. Continue aspirin and Eliquis. Right groin site is clean. Peripheral pulse is palpable. 2. Shortness of breath. resolved. Multifactorial. Likely secondary to CHF exacerbation, atrial fibrillation with RVR, and likely underlying COPD. Resolved per patient. Continue with nebulizer treatments. Continue with O2 via nasal cannula as needed. Pulmonary evaluation appreciated. will need outpatient PFTs. 3. Cardiomyopathy with low ejection fraction. Patient had an episode of nonsustained tachycardia. Case discussed with Dr. Amor in detail. Will place LifeVest. Might need AICD placement if ejection fraction does not improve after 3 months. 4. BPH. Continue flomax and finasteride Patient is a DNR/DNI Case was discussed in detail with the patient at bedside regarding current diagnosis and treatment plan. Upon discharge the patient will follow up with PMD and cardiology Dr. Amor.
[2018-03-02] MEDS: Sodium Chloride 0.9% 1,000 ML IV SCH ×2 (14:26→14:27)
--- NOTE | 2018-03-02 14:51 | PN ---
Copied To: Fermin Thomas MD Attending MD: Fermin Thomas MD DATE: 03/02/2018 SUBJECTIVE: The patient is without chest pain, without shortness of breath. No recurrent wide complex tachycardia. PHYSICAL EXAMINATION: VITAL SIGNS: Blood pressure is 115/75; heart rate is in atrial fibrillation and in the 90s. NECK: Negative JVD. LUNGS: Without rales. HEART: Reveal S1, S2. EXTREMITIES: The right groin site is stable. LABORATORY DATA: BUN and creatinine unremarkable. Potassium is 4.2, hemoglobin is 12.9. IMPRESSION: 1. Stable post percutaneous transluminal coronary angioplasty and stent. 2. Atrial fibrillation. 3. Hypercholesterolemia. 4. Coronary artery disease. Given these findings, the patient is doing well post procedure. No recurrent VT noted. Fermin Thomas MD
--- NOTE | 2018-03-02 15:35 | CARDCATH ---
Copied To: Jarerll Amor MD Attending MD: Jarrell Amor MD PROCEDURE DATE: 03/02/2018 PROCEDURES: Percutaneous coronary intervention and drug-eluting stent placement of the obtuse marginal artery. CLINICAL INDICATIONS: 1. Chest pain. 2. Non-ST elevation myocardial infarction. 3. Dyspnea. 4. Ischemic cardiomyopathy. 5. Nonsustained ventricular tachycardia. 6. History of coronary artery disease status post CABG x4. 7. History of aortic stenosis status post bioprosthetic aortic valve. 8. Hypertension. 9. Hyperlipidemia. 10. Atrial fibrillation. REFERRING PHYSICIAN: Santy Lowry MD PERFORMING PHYSICIAN: Jarrell Amor MD PROCEDURE: After informed consent, the patient was prepped and draped in the usual sterile fashion. A 2% lidocaine was given in the right groin for local anesthesia. Using micropuncture technique, 6-Lithuanian sheath was introduced into right common femoral artery. Due to tortuous iliac arteries, a long 6-Lithuanian sheath was used. The patient was preloaded with aspirin, Plavix and IV heparin. ACT was maintained above 250 throughout the procedure. XBLAD 3.5 guide catheter engaged into left main coronary artery. Contrast injected and left coronary angiogram was done. The patient has a short left main. Mid LAD is 100% occluded. Obtuse marginal 1 is 99% occluded. Obtuse marginal 2 has a proximal 95% stenosis and distal 80% stenosis. There was a SHANNON II flow distal to the occlusions in the obtuse marginal coronary artery. Runthrough coronary wire threaded into obtuse marginal 2 artery. The lesions were pre-dilated using 2 x 15 compliant balloon. Both the lesions of the obtuse marginal 2 arteries were stented using a long 2.25 x 38 Resolute Teofilo LAUREN. Excellent final angiographic results with brisk SHANNON III flow noted. The patient tolerated the procedure well. Post procedure, Perclose suture deployed with excellent hemostasis. The patient will be transferred back to telemetry for further observation. We will continue aspirin 81 and Plavix 75 daily. We will resume Eliquis 2.5 mg twice a day for atrial fibrillation. After one-month of therapy, we will discontinue one antiplatelet medication and continue both Eliquis and one antiplatelet medication for rest of the life. The patient is started on 50 mL of normal saline for hydration for 6 hours. Due to low EF, we will start BERNICE inhibitors. Recommend LifeVest evaluation for three months post PCI. Jarrell Amor MD
[2018-03-02] MEDS: Potassium Chloride 20 mEq ER Tab PO SCH (18:04)
[2018-03-03] MEDS: Levalbuterol 1.25 MG/3 ML Inhal Soln UD IH SCH ×3 (02:21→14:10)
[2018-03-03 05:56] VITALS: O2SAT 99
[2018-03-03 07:04] LABS: BASO # 0.04 K/mm3 (0.0-2.0); BASO % 0.4 % (0.0-3.0); EOS # 0.7 (0.0-0.7); EOS % 6.7 % (1.5-5.0); GRAN # 8.25 (1.4-6.5); GRAN % 76.6 % (50.0-68.0); HEMOGLOBIN 12.5 g/dL (14.0-18.0); LYMPH % 9.6 % (22.0-35.0); MEAN CORPUSCULAR HEMOGLOBIN 28.9 pg (25.0-35.0); MEAN CORPUSCULAR HGB CONC 32.1 g/dl (31.0-37.0); MEAN PLATELET VOLUME 10.8 fl (7.0-11.0); MONO # 0.7 (0.1-0.6); MONO % 6.7 % (1.0-6.0); RBC 4.32 10^6/uL (3.5-6.1); RED CELL DISTRIBUTION WIDTH 13.8 % (11.5-14.5); WHITE BLOOD COUNT 10.8 10^3/ul (4.5-11.0)
[2018-03-03 08:07] LABS: ALB/GLOB RATIO 1.2 (1.1-1.8); ALBUMIN 3.9 g/dL (3.0-4.8); ALT/SGPT 58 U/L (7-56); AST/SGOT 32 U/L (17-59); BLOOD UREA NITROGEN 27 mg/dL (7-21); GFR AFRICAN-AMERICAN > 60; GFR NON-AFRICAN AMERICAN > 60
[2018-03-03] MEDS: Potassium Chloride 20 mEq ER Tab PO SCH (10:00)
[2018-03-03 12:55] VITALS: RESP 19; TEMP 98.3
--- NOTE | 2018-03-03 13:25 | CP.PCM.DIS ---
<Janae Camarena - Last Filed: 03/03/18 16:35> Provider - Provider Date of Admission: 02/24/18 06:45 Attending physician: Chu Peters MD Primary care physician: Santy Lowry MD Consults: Cardiology: Dr. Amor, Dr. Thomas, Dr. Michael Pulmonology: Dr. Ibarra Time Spent in preparation of Discharge (in minutes): 100 Diagnosis - Discharge Diagnosis (1) CHF (congestive heart failure) Status: Acute Hospital Course - Lab Results Lab Results: Most Recent Lab Values WBC 10.8 10^3/ul (4.5-11.0) 03/03/18 06:30 RBC 4.32 10^6/uL (3.5-6.1) 03/03/18 06:30 Hgb 12.5 g/dL (14.0-18.0) L 03/03/18 06:30 Hct 38.9 % (42.0-52.0) L 03/03/18 06:30 MCV 90.0 fl (80.0-105.0) 03/03/18 06:30 MCH 28.9 pg (25.0-35.0) 03/03/18 06:30 MCHC 32.1 g/dl (31.0-37.0) 03/03/18 06:30 RDW 13.8 % (11.5-14.5) 03/03/18 06:30 Plt Count 217 10^3/uL (120.0-450.0) 03/03/18 06:30 MPV 10.8 fl (7.0-11.0) 03/03/18 06:30 Gran % 76.6 % (50.0-68.0) H 03/03/18 06:30 Lymph % (Auto) 9.6 % (22.0-35.0) L 03/03/18 06:30 [place] % (Auto) 6.7 % (1.0-6.0) H 03/03/18 06:30 Eos % (Auto) 6.7 % (1.5-5.0) H 03/03/18 06:30 Baso % (Auto) 0.4 % (0.0-3.0) 03/03/18 06:30 Gran # 8.25 (1.4-6.5) H 03/03/18 06:30 Lymph # (Auto) 1.0 (1.2-3.4) L 03/03/18 06:30 [place] # (Auto) 0.7 (0.1-0.6) H 03/03/18 06:30 Eos # (Auto) 0.7 (0.0-0.7) 03/03/18 06:30 Baso # (Auto) 0.04 K/mm3 (0.0-2.0) 03/03/18 06:30 PT 12.2 SECONDS (9.4-12.5) 03/02/18 06:30 INR 1.06 03/02/18 06:30 APTT 39.0 Seconds (25.1-36.5) H 03/02/18 06:30 pCO2 49 mm/Hg (35-45) H 02/26/18 10:10 pO2 92.0 mm/Hg (80-100) 02/26/18 10:10 HCO3 31.8 mmol/L (21-28) H 02/26/18 10:10 ABG pH 7.42 (7.35-7.45) 02/26/18 10:10 ABG Total CO2 33.3 mmol.L (22-28) H 02/26/18 10:10 ABG O2 Saturation 98.4 % (95-98) H 02/26/18 10:10 ABG O2 Content 17.4 ML/dl (15-23) 02/26/18 10:10 ABG Base Excess 6.2 mmol/L (-2.0-3.0) H 02/26/18 10:10 ABG Hemoglobin 12.8 g/dL (11.7-17.4) 02/26/18 10:10 ABG Carboxyhemoglobin 1.4 % (0.5-1.5) 02/26/18 10:10 POC ABG HHb (Measured) 1.6 % (0-5) 02/26/18 10:10 ABG Methemoglobin 0.8 % (0.0-3.0) 02/26/18 10:10 ABG O2 Capacity 17.7 mL/dl (16-24) 02/26/18 10:10 Hgb O2 Saturation 96.1 % (95.0-98.0) 02/26/18 10:10 FiO2 28.0 % 02/26/18 10:10 Sodium 139 mmol/L (132-148) 03/03/18 07:30 Potassium 4.4 mmol/L (3.6-5.0) 03/03/18 07:30 Chloride 96 mmol/L (98-107) L 03/03/18 07:30 Carbon Dioxide 34 mmol/L (21-33) H 03/03/18 07:30 Anion Gap 13 (10-20) 03/03/18 07:30 BUN 27 mg/dL (7-21) H 03/03/18 07:30 Creatinine 0.9 mg/dl (0.8-1.5) 03/03/18 07:30 Est GFR ( Amer) > 60 03/03/18 07:30 Est GFR (Non-Af Amer) > 60 03/03/18 07:30 Random Glucose 116 mg/dL (70-110) H 03/03/18 07:30 Calcium 9.0 mg/dL (8.4-10.5) 03/03/18 07:30 Phosphorus 3.6 mg/dL (2.5-4.5) 03/01/18 21:03 Magnesium 2.1 mg/dL (1.7-2.2) 03/01/18 21:03 Total Bilirubin 0.9 mg/dL (0.2-1.3) 03/03/18 07:30 AST 32 U/L (17-59) 03/03/18 07:30 ALT 58 U/L (7-56) H 03/03/18 07:30 Alkaline Phosphatase 85 U/L (38-126) 03/03/18 07:30 Lactate Dehydrogenase 818 U/L (333-699) H 02/24/18 10:40 Total Creatine Kinase 92 U/L (35-230) 02/24/18 10:40 Troponin I 0.35 ng/mL H* 02/24/18 10:40 NT-Pro-B Natriuret Pep 2280 pg/mL (0-450) H 03/01/18 21:03 Total Protein 7.0 g/dL (5.8-8.3) 03/03/18 07:30 Albumin 3.9 g/dL (3.0-4.8) 03/03/18 07:30 Globulin 3.1 gm/dL 03/03/18 07:30 Albumin/Globulin Ratio 1.2 (1.1-1.8) 03/03/18 07:30 TSH 3rd Generation 1.53 mIU/mL (0.46-4.68) 02/24/18 04:20 Digoxin 1.0 ng/mL (0.8-2.0) 02/25/18 11:30 - Hospital Course Hospital Course: 82 year old with past medical history of coronary artery disease status post CABG, systolic CHF, atrial fibrillation, hypertension, hyperlipidemia, and aortic stenosis status post AVR presented to the emergency room with cough, shortness of breath, and intermittent chest pain on 02/24. On 02/16, patient had cardiac catherization done by Dr. Amor at [facility] which showed 99% occlusion of LAD, 100% occlusion of DI, 100% occlusion of OM1, 99% occlusion of OM2, and 100% occlusion of RCA. On presentation to [facility], EKG on 02/24 showed atrial fibrillation with RVR with heart rate of 137. Chest x ray on 02/24 showed moderate cardiomegaly, and vascular congestion. Patient was transferred to the telemetry floor for further monitoring. Patient was started on a cardizem drip 20mg/hr, was given lasix 40 mg IV BID, atorvastatin 20 mg daily, clopidogrel 75 mg daily, eliquis 2.5 mg BID, metoprolol tartrate 25 mg BID, coreg 3.125 BID, aspirin 81 mg, and was on 2L NC of oxygen. Troponinsx2 were elevated on admission at 0.35 twice, most likely due to acute NE s/p catherization on 02/16/18. Patient's heart rate was controlled with cardizem. Echocardiogram was performed on 02/25 which showed 33.9% ejection fraction which was down from ejection fraction of 46% seen during hospital admission at [facility]. In addition, echocardiogram showed biatrial enlargement, dilated right ventricle, normal left ventricle, moderate left ventricle systolic dysfunction with global hypokinesis, mild to moderarte aortic stenosis, moderate mitral regurgitation, and mild tricuspid regurgitation. Cardizem was titrated down and finally titrated off on 02/27 with stable heart rate and no longer in RVR. Patient was started on cardizem 90 mg PO. Patient was also on coreg and dose was increased from 3.125 BID to 6.25 BID on 02/25. Low dose losartan was started on 03/02. Cardiac catherization was done by Dr. Amor on 03/02. Eliquis was stopped on 03/01 in preparation of procedure. Catherization which showed good size OM2 98% stenosis not receiving enough flow from OM1 graft. LAUREN stent was placed in OM2. After procedure, patient was restarted on aspirin, plavix, and eliquis. Patient was fitted for life vest on 03/03, and Dr. Amor recommended patient to continue aspirin 81, plavix 75, and eliquis 2.5 BID for one month. After one month, he will discontinue either aspirin or plavix. In addition, he wanted all of the other medications that the patient was on in the hospital continued. These include coreg 6.25 mg BID, losartan 25 mg daily, and cardizem 90 mg PO TID. Patient had diffuse wheezes throughout hospitalization. As a result, ABG was abnormal. Dr. Ibarra was consulted for pulmonology consult who recommended duonebs. Patient was on xopenex 1.25 mg IH Q6 and 1.25 IH Q4PRN for respiratory distress. Patient was on finasteride 5 mg and tamsulosin 0.4 mg as per home regimen for BPH throughout admission. Patient was deemed medically stable by cardiology, pulmonology, and primary care team. Patient was told to follow up with primary care physician, Dr. Peter, within 7 days. In addition, patient was told to follow up with Dr. Amor on 03/10/18 at 3 :00pm. Patient was discharged with aspirin 81 mg daily, plavix 75 mg daily, eliquis 2.5 mg BID, losartan 25 mg daily, coreg 6.125 mg daily, and diltiazem 90 mg TID. Patient was told to return to emergency department if symptoms reoccur. Above is a brief summary of the patient's hospital course. For a more detailed encounter, please refer to medical records. - Date & Time of H&P Date of H&P: 02/24/18 Time of H&P: 07:40 Discharge Exam - Head Exam Head Exam: ATRAUMATIC, NORMOCEPHALIC - Eye Exam Eye Exam: EOMI, PERRL - Respiratory Exam Respiratory Exam: Clear to PA & Lateral, NORMAL BREATHING PATTERN - Cardiovascular Exam Cardiovascular Exam: Irregular Rhythm - GI/Abdominal Exam GI & Abdominal Exam: Normal Bowel Sounds - Extremities Exam Extremities exam: full ROM - Neurological Exam Neurological exam: Alert, CN II-XII Intact, Oriented x3 - Psychiatric Exam Psychiatric exam: Normal Affect, Normal Mood - Skin Skin Exam: Dry, Intact, Normal Color Additional comments: Erythema in right lower quadrant of abdomen and right pelvis. Discharge Plan - Discharge Medications Prescriptions: Carvedilol [Coreg] 6.25 mg PO BID #30 tab diltiaZEM [Cardizem] 90 mg PO Q8H #30 tab Losartan [Cozaar] 25 mg PO DAILY #30 tab - Follow Up Plan Condition: FAIR Disposition: HOME/ ROUTINE Instructions: Heart Failure, Adult, Coronary Heart Disease, Atrial Fibrillation , Chest Pain, Cardiac Catheterization (DC), Coronary Stenting (DC) Additional Instructions: Upon discharge please take the following medications as prescribed: Coreg, Diltiazem, Losartan, Aspirin, Eliquis, Plavix. Discontinue verapamil for now. Please follow up with cardiology Dr. Jarrell Amor on Thursday03/10/18 at 3pm. Please return to ED if symptoms reoccur. Referrals: Jarrell Amor MD [Staff Provider] - Santy Lowry MD [Primary Care Provider] - <Chu Peters - Last Filed: 03/04/18 07:55> Provider - Provider Date of Admission: 02/24/18 06:45 Attending physician: Chu Peters MD Primary care physician: Santy Lowry MD Hospital Course - Lab Results Lab Results: Most Recent Lab Values WBC 10.8 10^3/ul (4.5-11.0) 03/03/18 06:30 RBC 4.32 10^6/uL (3.5-6.1) 03/03/18 06:30 Hgb 12.5 g/dL (14.0-18.0) L 03/03/18 06:30 Hct 38.9 % (42.0-52.0) L 03/03/18 06:30 MCV 90.0 fl (80.0-105.0) 03/03/18 06:30 MCH 28.9 pg (25.0-35.0) 03/03/18 06:30 MCHC 32.1 g/dl (31.0-37.0) 03/03/18 06:30 RDW 13.8 % (11.5-14.5) 03/03/18 06:30 Plt Count 217 10^3/uL (120.0-450.0) 03/03/18 06:30 MPV 10.8 fl (7.0-11.0) 03/03/18 06:30 Gran % 76.6 % (50.0-68.0) H 03/03/18 06:30 Lymph % (Auto) 9.6 % (22.0-35.0) L 03/03/18 06:30 [place] % (Auto) 6.7 % (1.0-6.0) H 03/03/18 06:30 Eos % (Auto) 6.7 % (1.5-5.0) H 03/03/18 06:30 Baso % (Auto) 0.4 % (0.0-3.0) 03/03/18 06:30 Gran # 8.25 (1.4-6.5) H 03/03/18 06:30 Lymph # (Auto) 1.0 (1.2-3.4) L 03/03/18 06:30 [place] # (Auto) 0.7 (0.1-0.6) H 03/03/18 06:30 Eos # (Auto) 0.7 (0.0-0.7) 03/03/18 06:30 Baso # (Auto) 0.04 K/mm3 (0.0-2.0) 03/03/18 06:30 PT 12.2 SECONDS (9.4-12.5) 03/02/18 06:30 INR 1.06 03/02/18 06:30 APTT 39.0 Seconds (25.1-36.5) H 03/02/18 06:30 pCO2 49 mm/Hg (35-45) H 02/26/18 10:10 pO2 92.0 mm/Hg (80-100) 02/26/18 10:10 HCO3 31.8 mmol/L (21-28) H 02/26/18 10:10 ABG pH 7.42 (7.35-7.45) 02/26/18 10:10 ABG Total CO2 33.3 mmol.L (22-28) H 02/26/18 10:10 ABG O2 Saturation 98.4 % (95-98) H 02/26/18 10:10 ABG O2 Content 17.4 ML/dl (15-23) 02/26/18 10:10 ABG Base Excess 6.2 mmol/L (-2.0-3.0) H 02/26/18 10:10 ABG Hemoglobin 12.8 g/dL (11.7-17.4) 02/26/18 10:10 ABG Carboxyhemoglobin 1.4 % (0.5-1.5) 02/26/18 10:10 POC ABG HHb (Measured) 1.6 % (0-5) 02/26/18 10:10 ABG Methemoglobin 0.8 % (0.0-3.0) 02/26/18 10:10 ABG O2 Capacity 17.7 mL/dl (16-24) 02/26/18 10:10 Hgb O2 Saturation 96.1 % (95.0-98.0) 02/26/18 10:10 FiO2 28.0 % 02/26/18 10:10 Sodium 139 mmol/L (132-148) 03/03/18 07:30 Potassium 4.4 mmol/L (3.6-5.0) 03/03/18 07:30 Chloride 96 mmol/L (98-107) L 03/03/18 07:30 Carbon Dioxide 34 mmol/L (21-33) H 03/03/18 07:30 Anion Gap 13 (10-20) 03/03/18 07:30 BUN 27 mg/dL (7-21) H 03/03/18 07:30 Creatinine 0.9 mg/dl (0.8-1.5) 03/03/18 07:30 Est GFR ( Amer) > 60 03/03/18 07:30 Est GFR (Non-Af Amer) > 60 03/03/18 07:30 Random Glucose 116 mg/dL (70-110) H 03/03/18 07:30 Calcium 9.0 mg/dL (8.4-10.5) 03/03/18 07:30 Phosphorus 3.6 mg/dL (2.5-4.5) 03/01/18 21:03 Magnesium 2.1 mg/dL (1.7-2.2) 03/01/18 21:03 Total Bilirubin 0.9 mg/dL (0.2-1.3) 03/03/18 07:30 AST 32 U/L (17-59) 03/03/18 07:30 ALT 58 U/L (7-56) H 03/03/18 07:30 Alkaline Phosphatase 85 U/L (38-126) 03/03/18 07:30 Lactate Dehydrogenase 818 U/L (333-699) H 02/24/18 10:40 Total Creatine Kinase 92 U/L (35-230) 02/24/18 10:40 Troponin I 0.35 ng/mL H* 02/24/18 10:40 NT-Pro-B Natriuret Pep 2280 pg/mL (0-450) H 03/01/18 21:03 Total Protein 7.0 g/dL (5.8-8.3) 03/03/18 07:30 Albumin 3.9 g/dL (3.0-4.8) 03/03/18 07:30 Globulin 3.1 gm/dL 03/03/18 07:30 Albumin/Globulin Ratio 1.2 (1.1-1.8) 03/03/18 07:30 TSH 3rd Generation 1.53 mIU/mL (0.46-4.68) 02/24/18 04:20 Digoxin 1.0 ng/mL (0.8-2.0) 02/25/18 11:30 Attending/Attestation - Attestation I have personally seen and examined this patient.: Yes I have fully participated in the care of the patient.: Yes I have reviewed all pertinent clinical information, including history, physical exam and plan: Yes Notes (Text): 03/04/18 07:54 Attending note; Patient seen and examined with resident. s/p cardiac catheterization. Patient is an 82-year-old male with past medical history significant for coronary artery disease status post CABG, systolic CHF, atrial fibrillation, hypertension, hyperlipidemia, and aortic stenosis status post AVR that presented to the emergency room with cough, shortness of breath, intermittent chest pain. 1. Atrial fibrillation with rapid ventricular response. Continue po Cardizem 90mg PO q8hrs. Coreg increased to 6.25mg PO BID. Status post cardiac catheterization and drug-eluting stent placement. Continue aspirin and Eliquis. Right groin site is clean. Peripheral pulse is palpable. 2. Shortness of breath. resolved. Multifactorial. Likely secondary to CHF exacerbation, atrial fibrillation with RVR, and likely underlying COPD. Resolved per patient. Continue with nebulizer treatments. Continue with O2 via nasal cannula as needed. Pulmonary evaluation appreciated. will need outpatient PFTs. 3. Cardiomyopathy with low ejection fraction. Patient had an episode of nonsustained tachycardia. Case discussed with Dr. Amor in detail. s/p Life vest placement. Might need AICD placement if ejection fraction does not improve after 3 months. 4. BPH. Continue flomax and finasteride Patient is a DNR/DNI Case was discussed in detail with the patient at bedside regarding current diagnosis and treatment plan. Discharge home today with close follow-up with cardiology Dr. Amor. Upon discharge the patient will follow up with PMD and cardiology Dr. Amor.
--- NOTE | 2018-03-03 14:08 | PN ---
Copied To: Fermin Thomas MD Attending MD: Fermin Thomas MD DATE: 03/03/2018 CARDIOLOGY FOLLOWUP (Dr. Michael) SUBJECTIVE: The patient is ambulating without symptoms. OBJECTIVE: VITAL SIGNS: Blood pressure 116/55, heart rate is in the 90s to 100s. NECK: Negative JVD. LUNGS: Without rales. HEART: S1, S2. EXTREMITIES: Without edema. The right groin site is stable. LABORATORY DATA: Hemoglobin is 12.5. Chemistries: BUN and creatinine are 27 and 0.9. Potassium is 4.4. IMPRESSION: 1. Status post percutaneous transluminal coronary angioplasty and stent. 2. Status post ST-elevation myocardial infarction. 3. History of ventricular tachycardia. 4. Chronic atrial fibrillation. 5. Hypercholesterolemia. Given these findings, the patient is stable post PTCA and stent. A LifeVest has been ordered and the patient has it on. From a cardiac perspective, the patient can be discharged. He needs to stay on Eliquis low-dose as well as Plavix. We will discontinue the aspirin today. Followup instructions have been given to him. He will follow up with Dr. Amor for further outpatient care. Fermin Thomas MD
[2018-03-03 18:52] VITALS: BP 106/62; PULSE 84
== END 2018-03-03 19:47 | disposition home or self-care (01) | DRG 246 ==
LOC: ED 03:30 → ERH 06:45 → 2RSO 14:49
PROVIDERS: ADMIT Internal Medicine; ATTEND Internal Medicine
PROC: 3E0F7GC Introduction of Other Therapeutic Substance into Respiratory Tract, Via Natural or Artificial Opening (ICD-10-PCS; 2018-02-24)
PROC: 027034Z Dilation of Coronary Artery, One Artery with Drug-eluting Intraluminal Device, Percutaneous Approach (ICD-10-PCS; principal; 2018-03-02)
PROC: B211YZZ Fluoroscopy of Multiple Coronary Arteries using Other Contrast (ICD-10-PCS; 2018-03-02)
DX: I11.0 Hypertensive heart disease with heart failure (principal); I50.23 Acute on chronic systolic (congestive) heart failure; I21.4 Non-ST elevation (NSTEMI) myocardial infarction; E87.2 Acidosis; I47.2 Ventricular tachycardia; J44.9 Chronic obstructive pulmonary disease, unspecified; I25.10 Atherosclerotic heart disease of native coronary artery without angina pectoris; I25.5 Ischemic cardiomyopathy; I48.2 Chronic atrial fibrillation; E78.00 Pure hypercholesterolemia, unspecified; N40.0 Benign prostatic hyperplasia without lower urinary tract symptoms; I08.3 Combined rheumatic disorders of mitral, aortic and tricuspid valves; Z66 Do not resuscitate; Z79.01 Long term (current) use of anticoagulants; Z95.3 Presence of xenogenic heart valve; Z95.1 Presence of aortocoronary bypass graft; Z87.891 Personal history of nicotine dependence; Z79.02 Long term (current) use of antithrombotics/antiplatelets; Z79.82 Long term (current) use of aspirin